=== PATIENT | female | born 1975 | race Caucasian/White ===

== ENCOUNTER → 2017-05-24 11:54 | Outpatient (CLI) | payer BC, SELFPAY ==
[2017-05-24 15:47] LABS: Absolute Lymphocyte Count 2.79 X10^3/ul (0.83-4.51); Absolute Neutrophil Count 2.7 X10^3/uL (2.0-7.7); Basophil# 0.02 X10^3/uL; Basophil% 0.3 % (0-1); Eosinophil# 0.15 X10^3/uL; Eosinophils% 2.4 % (0-5); Hematocrit 41.5 % (37-47); Hemoglobin 13.4 g/dl (12.0-15.0); Lymphocyte # 2.79 X10^3/ul (4.0); Lymphocyte % 45.2 % (19-41); Mean Corp Hgb Conc 32.3 g/gl (32-36); Mean Corpuscular Hgb 29.2 pg (27.0-32.0); Mean Corpuscular Volume 90.4 fL (81-99); Mean Platelet Vol. 10.4 fl (6.2-12.0); Monocyte# 0.51 X10^3/uL; Monocyte% 8.3 % (0-10); Neutrophil # 2.69 X10^3/uL (2.7-7.7); Neutrophil % 43.6 % (47-70); Platelet Count 276 K/mm3 (150-450); RBC Distribution Width CV 13.4 % (11.6-14.6); RBC Distribution Width SD 43.7 fl (35.1-43.9); Red Blood Count 4.59 M/mm3 (4.2-5.4); White Blood Count 6.2 K/mm3 (4.4-11.0)
[2017-05-24 15:48] LABS: POSITIVE COUNT NO; POSITIVE DIFFERENTIAL NO; POSITIVE MORPHOLOGY NO
[2017-05-24 15:51] LABS: Erythrocyte Sedimentation Rate 11 mm/hr (0-20)
[2017-05-24 16:11] LABS: ALB/GLOB Ratio 0.9 RATIO (0.9-2.4); AST(SGOT) 45 U/L (15-37); Alanine Aminotransfer ALT/SGPT 75 U/L (13-56); Albumin, Serum 3.8 g/dL (3.2-5.0); Alkaline Phosphatase 51 U/L (45-117); Anion Gap 8 (5-15); BUN 17 mg/dL (7-18); BUN/Creat Ratio 19.1 RATIO (10-20); CRP 7.81 mg/L (0.0-3.0); Calcium,Total 8.2 mg/dL (8.5-10.1); Chloride 107 mmol/L (98-107); Creatinine, Serum 0.89 mg/dL (0.55-1.02); EST Glomerular Filtration Rate 74 mL/min (>60); Est Glom Filt Rate - Afr Amer 89 mL/min (>60); Globulin 4.4 g/dL (2.2-4.2); Glucose 94 mg/dL (74-106); Potassium 3.5 mmol/L (3.5-5.1); Protein, Total 8.2 g/dL (6.4-8.2); Rheumatoid Factor < 10.0 IU/mL (<15); Sodium Level 141 mmol/L (136-145); Thyroid Stim Hormone (TSH) 2.15 uIU/mL (0.358-3.74)
[2017-05-24 16:12] LABS: Vitamin B12 1165 pg/mL (211-911); Vitamin D,25 Hydroxy 15.3 ng/mL (29.95-100.01)
[2017-05-26 11:16] LABS: ANTINUCLEAR ANTIBODIES DIRECT Negative (Negative)
[2017-05-27 08:44] LABS: CCP IgG Antibodies 7 units (0-19)
== END ==
PROVIDERS: Family Provider Family Medicine; PCP Family Medicine; Visit Provider Family Medicine
DX: M06.4 Inflammatory polyarthropathy (principal); D64.9 Anemia, unspecified; R53.83 Other fatigue
CPT/HCPCS: 36415; 80053; 82306; 82607; 84439; 84443; 85025; 85652; 86038; 86140; 86200; 86225; 86235; 86431

== ENCOUNTER → 2019-01-09 14:55 | Outpatient (CLI) | payer SELFPAY | PROVIDERS: Family Provider Family Medicine; PCP Family Medicine; Visit Provider Family Medicine | DX: R69 Illness, unspecified (principal) | CPT/HCPCS: 36415 ==

== ENCOUNTER 2019-06-15 15:27 | Inpatient (IN) | payer MEDICARE, OTHER, SELFPAY ==
[2019-06-15] VITALS (11 sets, daily range): BP systolic 115–151; BP diastolic 75–97; PULSE 84–96; RESP 15–20; TEMP 36.9–38.9; O2SAT 84–97; BMI 35.2; BMI 37.3
--- NOTE | 2019-06-15 15:50 | EKG12_ITS ---
Test Reason : SOB Blood Pressure : / mmHG Vent. Rate : 092 BPM Atrial Rate : 092 BPM P-R Int : 164 ms QRS Dur : 080 ms QT Int : 352 ms P-R-T Axes : 023 -07 043 degrees QTc Int : 435 ms Normal sinus rhythm Normal ECG Confirmed by ZACKARY TERRY, DANIELLE ([id number]), international editorial producer JALEESA ANTONIO ([id number]) on 06/18/2019 10:58:28 AM Referred By: KAREN Confirmed By:DANIELLE RAYMUNDO MD
--- NOTE | 2019-06-15 15:55 | NURSING ---
NO OLD EKGS
[2019-06-15 16:20] LABS: Absolute Lymphocyte Count 1.18 X10^3/uL (0.83-4.51); Absolute Neutrophil Count 1.3 X10^3/uL (2.0-7.7); Basophil# 0.01 X10^3/uL; Basophil% 0.4 % (0-1); Hematocrit 43.7 % (37-47); Hemoglobin 14.4 g/dL (12.0-15.0); Lymphocyte # 1.18 X10^3/ul (4.0); Lymphocyte % 41.8 % (19-41); Mean Corpuscular Hgb 29.9 pg (27.0-32.0); Mean Corpuscular Volume 90.7 fL (81-99); Mean Platelet Vol. 10.2 fl (6.2-12.0); Monocyte# 0.28 X10^3/uL; Monocyte% 9.9 % (0-10); NRBC Flagged by Analyzer 0 % (0-5); Neutrophil # 1.34 X10^3/uL (2.7-7.7); Neutrophil % 47.5 % (47-70); Platelet Count 165 K/mm3 (150-450); RBC Distribution Width CV 12.9 % (11.6-14.6); RBC Distribution Width SD 42.5 fl (35.1-43.9); Red Blood Count 4.82 M/mm3 (4.2-5.4); White Blood Count 2.8 K/mm3 (4.4-11.0)
[2019-06-15] MEDS: Morphine 4 MG/ML Syringe IV (16:29)
[2019-06-15] MEDS: Ondansetron 4 MG/2 ML Vial IV (16:29)
[2019-06-15 16:31] LABS: Internal QC Validated? YES +Cl - CLEAR BKGD; Pregnancy, Serum, hCG Quali. NEGATIVE Negative
[2019-06-15 16:40] LABS: Anion Gap 6 (5-15); BUN 17 mg/dL (7-18); BUN/Creat Ratio 14.7 RATIO (10-20); Calcium,Total 8.8 mg/dL (8.5-10.1); Chloride 105 mmol/L (98-107); Creatinine, Serum 1.16 mg/dL (0.55-1.02); EST Glomerular Filtration Rate 54 mL/min (>60); Est Glom Filt Rate - Afr Amer 65 mL/min (>60); Estimated Creatinine Clearance 59.56 ml/min; Glucose 89 mg/dL (74-106); Potassium 3.8 mmol/L (3.5-5.1); Sodium Level 137 mmol/L (136-145)
--- NOTE | 2019-06-15 16:45 | RAD_ITS ---
STUDY: X-RAY CHEST REASON FOR EXAM: Female, 44 years old. 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 COMPARISON: None. FINDINGS: The lungs are underexpanded. There are patchy opacities in the left lower lobe. There is no demonstrated pleural abnormality. There is mild cardiac enlargement. Normal mediastinum and nicola. Normal visualized pulmonary arteries. Normal visualized aortic arch and descending thoracic aorta. Normal visualized thoracic spine. Normal visualized ribs, clavicles, and shoulders. There is no demonstrated abnormality of the visualized soft tissue structures of the upper abdomen. RAD/Chest 1 View (Portable) IMPRESSION: Patchy opacities left lower lobe suspicious for pneumonia. Electronically Signed: Lizzeth Little MD at 17:12 EDT Tel , Service support ,
--- NOTE | 2019-06-15 18:00 | ED.VISSUMM ---
- ER Visit Summary Date of Service: 06/15/19 Chief Complaint: Cough and sore throat History of Present Illness: The patient is a [address] Reynaldo Enamorado. She works as a nurse at [employer]. She has been in contact with a great deal of COVID-19. She reports that 6 days ago she developed a sore throat. She is gradually developed a nonproductive cough. She states that she has severe shortness of breath with ambulation. Is mild at rest. She has had subjective fever and chills. Patient does report that she has chest pain at 6 out of 10 severity. Is a constant pain that is increased with coughing. She describes it as dull. She is had nausea with no vomiting. Physical Examination: Vitals: 98.8, 151/97, 96, 18, 83% on room air with ambulation which is hypoxic.. General: Well-nourished and well-developed. Head: Normocephalic atraumatic. Neck: Supple, no lymphadenopathy. No JVD. Nontender. Cardiovascular: Regular rate and rhythm. No murmurs. Respiratory: No respiratory distress. Crackles at the bases bilaterally. Abdominal: Soft, nontender, nondistended, normal bowel sounds. No guarding, rebound, or peritoneal signs. Back: Nontender. Extremities: Nontender, no edema. Skin: Normal color, no rash. Neurologic: Alert and oriented ?3. Cranial nerves II through XII are intact. Normal strength and sensation. Psych: Normal affect. Test Results: EKG is sinus at [address] changes. Troponin is negative. test is negative. Chem-7 shows a creatinine 1.16. CBC shows a white count of 2.8 with 42% lymphocytes. Chest x-ray shows in my opinion poor inspiration with atelectasis at the left base. The radiologist read this is an infiltrate at the left base. Emergency Department Course and Treatment: Patient was given dose of morphine and Zofran IV. Ambulatory pulse ox is 83% with a good waveform. She was given Zithromax p.o. and Rocephin IV. I clinically do not think that she has pneumonia. I do not think that her imaging is consistent with pneumonia. I feel that given her history and her labs by far the most likely thing is that she has COVID-19. Treatment Plan: Patient was discussed Dr. Christopher. She will be admitted to hospital for further evaluation and treatment. Disposition: Admitted in stable condition. Impression: 1. URI. 2. Hypoxia. 3. Suspect COVID-19 infection. This note was generated with [employer] dictation software. It may contain incorrect words, spelling, and punctuation that were not noted in review of the chart prior to signing ED Disposition - Plan for ED Patient: Referrals: Reynaldo Enamorado MD [Primary Care Provider] -
--- NOTE | 2019-06-15 18:04 | NURSING ---
MED SURG TONE HYPOXIA, COVID
--- NOTE | 2019-06-15 18:22 | HP.PCM_ITS ---
Problem List (1) Pneumonia Status: Acute Qualifiers: Pneumonia type: due to unspecified organism Laterality: bilateral Lung location: lower lobe of lung Qualified Code(s): J18.9 - Pneumonia, unspecified organism History of Present Illness Date of Admission: 06/15/19 Chief Complaint: shortness of breath The patient is a 44 year old F who has been ill since this past June 08. Patient started off having a sore throat and then progressed to being short of breath. Patient had a pulse oximeter at home and was noting that she would be 70% when she would wake in the morning. Patient was having dyspnea on exertion progressively just got worse. 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 Symptoms just continue to get worse and patient presented to the emergency room. In emergency room, patient dropped down to 84% on room air and placed on oxygen. Chest x-ray was a poor inspiratory effort but was questionable for pneumonia. Patient received Rocephin and azithromycin. Patient was checked for influenza a which is negative. Additionally she was checked for COVID-19, results of yet to be sent out. [] Past Medical History Allergies No Known Allergies Allergy (Verified 06/15/19 15:30) Home Medications: Ambulatory Orders Medication Instructions Recorded NK 06/15/19 Smoking Status: Never smoker Alcohol: Occasional - States that she drinks 5 to 6 days/week but has not drank in a week. Drugs: None - *Family History Maternal History Items: - - No underlying lung disease such as asthma nor COPD Review of Systems Constitutional: Reports: Anorexia, Chills, Malaise, Weakness. Denies: Fever - States that her temperature normally resides around 96 but she is been registering temperatures around 99 Eyes: Reports: Blurred vision, Double vision HEENT: Reports: Sore Throat. Denies: Head Aches, Sinus Congestion, Sinus Drainage Cardiovascular: Denies: Chest Pain, Palpitations Respiratory: Reports: Cough, Shortness of Breath, Shortness of breath upon exertion, Sputum production Gastrointestinal: Reports: Nausea. 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 Patient states that if she turns her neck a certain way that her left arm go numb. This is been a chronic issue for her. Hematologic/ Lymphatic: Denies: Easy Bruising, Easy Bleeding Comment: All review of systems were negative except as mentioned above in the history of present illness and the other review of systems. VTE Information - Inpt Only VTE Present on Admission: No VTE Pharm Prophylaxis ordered?: Yes Patient Problems: Active and Suspected Problems Pneumonia (Acute) - Physical Exam Vitals/I&O's: Vital Signs Temp Pulse Resp BP Pulse Ox 36.9 C 88 15 118/75 95 06/15/19 17:00 06/15/19 17:00 06/15/19 17:32 06/15/19 17:00 06/15/19 17:32 Oxygen Flow Rate (L/min) 3 Oxygen Delivery Method Nasal Cannula Weight: 102.058 kg Body Mass Index (BMI) 35.2 General: Alert, Cooperative, No apparent distress HEENT: Atraumatic, Normocephalic Oral: Moist Mucosa, No Gingival or Mucosal Lesions/ Ulcerations Neck: No Nodes, Trachea Midline Lungs: Normal air movement, - - Bibasilar crackles Cardiovascular: Regular rate, Regular Rhythm, Normal S1, Normal S2 Abdomen: Bowel Sounds Present, Soft, Non Tender, Non-Distended, No Hepato- splenomegaly, Obese Extremities: No edema, No Calf Tenderness Skin: No rashes, No breakdown Musculoskeletal: No Tenderness to Palpation of Joints or Extremities, No Muscle Wasting Neurological: Deep Tendon Reflexes 2+/4 and Symmetrical - In the lower extremities, - - No clonus Psych/Mental Status: Normal Affect, Appropriate Microbiology Past 72 Hours 06/15/19 16:08 Mucosa - Nose Influenza Types A,B Direct FA (KAMERON) - Final Laboratory Results 06/15/19 16:08: COVID-19 (CHARLY) Pending 06/15/19 16:10: WBC 2.8 L, RBC 4.82, Hgb 14.4, Hct 43.7, MCV 90.7, MCH 29.9, MCHC 33.0, RDW Std Deviation 42.5, RDW Coeff of Viktoriya 12.9, Plt Count 165, MPV 10.2, Immature Gran % (Auto) 0.400, Neut % (Auto) 47.5, Lymph % (Auto) 41.8 H, Weakley % (Auto) 9.9, Eos % (Auto) 0.0, Baso % (Auto) 0.4, Absolute Neuts (auto) 1.3 L, Absolute Lymphs (auto) 1.18, Nucleated RBC % 0 06/15/19 16:10: Sodium 137, Potassium 3.8, Chloride 105, Carbon Dioxide 26.0, Anion Gap 6, BUN 17, Creatinine 1.16 H, Estim Creat Clear Calc 59.56, Est GFR (MDRD) Af Amer 65, Est GFR (MDRD) Non-Af 54 L, BUN/Creatinine Ratio 14.7, Glucose 89, Calcium 8.8, Troponin I < 0.015 06/15/19 16:10: Serum , Qual NEGATIVE Chest x-ray reviewed and showed poor inspiratory effort. Questionable bilateral infiltrate. Current Medications Ceftriaxone Sodium (Rocephin) 1 gm in 50 mls @ 100 mls/hr IV X1 ONE Stop: 06/15/19 18:23 Assessment/Plan All Active Problems Pneumonia (Acute) 1. Suspected pneumonia: * Etiology would be bacterial, such as pneumococcal versus viral, such as COVID- 19. * Plan is to continue with ceftriaxone and azithromycin, pulmonary toilet, check urinary antigens for Streptococcus, Legionella, check sputum culture. COVID- 19 testing performed in the emergency room and results probably will not return for another 48 hours * Patient is high risk for COVID-19 and I highly suspect that she does have COVID-19 given the fact that she she works at [employer] where there has been a multitude of patients who have it and from it apparently. * Given the concern for COVID-19, will check a d-dimer. If d-dimer is greater than 1.5, then would initiate anticoagulation with full dose enoxaparin or heparin drip. Patient's kidney function would allow enoxaparin. And that with that then would order a CT angiogram of the chest to rule out pulmonary embolism. If no pulmonary embolism is identified, then would just continue with the prophylactic dosing of enoxaparin. * Additionally given the concern for COVID-19, would avoid aggressive hydration. May consider 1/2 L of fluids the patient does require a CT angiogram but overall trying to minimize fluids with the high risk of acute lung injury associated with COVID-19. 2. Acute hypoxic respiratory insufficiency: * Secondary to pneumonia. Cannot rule out other processes such as VTE nor acute lung injury, possibly COVID-19 induced. * Pulmonary toilet. * Check ambulatory pulse ox upon discharge if patient still is requiring oxygen 3. VTE prophylaxis: Moderate to high risk given potential for COVID. Patient will be on enoxaparin. See above for further details. 4. Advanced care planning: Discussed with the patient. Patient wishes to be full CODE STATUS. Inpatient E&M: [id number] Init Hosp L3
[2019-06-15] MEDS: Azithromycin 250 MG Tablet 500 MG PO (18:25)
[2019-06-15] MEDS: Ceftriaxone 1 GM/50 ML BAG IV (18:25)
[2019-06-15] MEDS: Acetaminophen 325 MG Tablet 650 MG PO (20:39)
[2019-06-15] MEDS: guaiFENesin 1,200 MG Tablet 1200 MG PO (20:39)
[2019-06-15 22:35] LABS: D-Dimer Quantitative (DVT/PE) 0.62 FEU/ug/m (0.27-0.49)
[2019-06-16] VITALS (7 sets, daily range): BP systolic 108–134; BP diastolic 66–74; PULSE 76–89; RESP 18–20; TEMP 36.9–39.2; O2SAT 93–95
--- NOTE | 2019-06-16 02:05 | CT_ITS ---
STUDY: CTA CHEST REASON FOR EXAM: Female, 44 years old. 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 PNEUMONIA SEEN ON CXR RADIATION DOSAGE (If Supplied By Facility): CTDIvol = ( 12.67 ) mGy, DLP = ( 432.10 ) mGycm TECHNIQUE: The examination was performed with the intravenous administration of IV 100mL Isovue-370. Post-processing of the angiographic images was performed, with multiplanar reformation and 3D reconstruction. Individualized dose optimization techniques were used for this CT. COMPARISON: None. FINDINGS: Normal enhancement of the main pulmonary artery and right and left pulmonary arteries. Normal enhancement of the bilateral peripheral pulmonary arteries. There is no demonstrated pulmonary embolism. Normal thoracic aorta and visualized great vessels. There is no demonstrated aortic dissection. Normal heart and pericardium. Normal mediastinum. There borderline enlarged bilateral hilar lymph nodes which could be reactive. Normal visualized trachea and bronchi. There is suboptimal inspiration. There are multifocal bilateral perihilar and lower lobe pulmonary infiltrates worse at the lung bases consistent with pneumonitis. There is a 6 mm noncalcified nodule in the RIGHT upper lung which could be a granuloma. Neoplastic nodule considered less likely but not excluded. Short-term follow-up suggested. There is NO pleural effusion or pneumothorax. Normal chest wall structures. Normal osseous structures. Images of the upper abdomen demonstrate hepatomegaly with fatty infiltration. There is cholelithiasis. CT/CTA Chest W/WO Contrast IMPRESSION: There is no demonstrated pulmonary embolism. Normal thoracic aorta and visualized great vessels. There is no demonstrated aortic dissection. Normal heart and pericardium. There borderline enlarged bilateral hilar lymph nodes which could be reactive. There are multifocal bilateral perihilar and lower lobe pulmonary infiltrates worse at the lung bases consistent with pneumonitis. There is a 6 mm noncalcified nodule in the RIGHT upper lung which could be a granuloma. Neoplastic nodule considered less likely but not excluded. Short-term follow-up suggested. There is NO pleural effusion or pneumothorax. Images of the upper abdomen demonstrate hepatomegaly with fatty infiltration. There is cholelithiasis. Electronically Signed: Thom Roberson MD at 3:34 EDT , Service support ,
--- NOTE | 2019-06-16 02:07 | PCM.PN.BLA ---
Progress Note Elevated d-dimer?Discontinue prophylactic dose of Lovenox. Give therapeutic dose of Lovenox x1. Get a CTPA. Depending upon results of CTPA order Lovenox as appropriate. STROKE Vital Signs/Narrative: Vital Signs Pulse Ox 06/15/19 23:30 92
[2019-06-16] MEDS: Enoxaparin 120 MG/0.8 ML Syringe 110 MG SC (02:53)
[2019-06-16] MEDS: Acetaminophen 325 MG Tablet 650 MG PO ×2 (02:53→15:31)
[2019-06-16 06:34] LABS: Absolute Lymphocyte Count 1.22 X10^3/uL (0.83-4.51); Absolute Neutrophil Count 1.8 X10^3/uL (2.0-7.7); Basophil# 0.01 X10^3/uL; Basophil% 0.3 % (0-1); Differential Indicated SCAN CRITERIA MET; Hematocrit 41.8 % (37-47); Hemoglobin 13.7 g/dL (12.0-15.0); Lymphocyte # 1.22 X10^3/ul (4.0); Lymphocyte % 36.3 % (19-41); Mean Corp Hgb Conc 32.8 g/dL (32-36); Mean Corpuscular Hgb 29.1 pg (27.0-32.0); Mean Corpuscular Volume 88.7 fL (81-99); Mean Platelet Vol. 10.3 fl (6.2-12.0); Monocyte# 0.37 X10^3/uL; NRBC Flagged by Analyzer 0 % (0-5); Neutrophil # 1.75 X10^3/uL (2.7-7.7); Neutrophil % 52.1 % (47-70); POSITIVE MORPHOLOGY YES; Platelet Count 169 K/mm3 (150-450); RBC Distribution Width CV 12.7 % (11.6-14.6); RBC Distribution Width SD 41.9 fl (35.1-43.9); Red Blood Count 4.71 M/mm3 (4.2-5.4); White Blood Count 3.4 K/mm3 (4.4-11.0)
[2019-06-16 06:53] LABS: ALB/GLOB Ratio 0.7 RATIO (0.9-2.4); AST(SGOT) 165 U/L (15-37); Alanine Aminotransfer ALT/SGPT 150 U/L (13-56); Albumin, Serum 3.2 g/dL (3.2-5.0); Alkaline Phosphatase 55 U/L (45-117); Anion Gap 9 (5-15); BUN 19 mg/dL (7-18); BUN/Creat Ratio 19.5 RATIO (10-20); Calcium,Total 8.2 mg/dL (8.5-10.1); Chloride 102 mmol/L (98-107); Creatinine, Serum 0.98 mg/dL (0.55-1.02); EST Glomerular Filtration Rate 66 mL/min (>60); Est Glom Filt Rate - Afr Amer 79 mL/min (>60); Globulin 4.4 g/dL (2.2-4.2); Glucose 101 mg/dL (74-106); Potassium 3.5 mmol/L (3.5-5.1); Protein, Total 7.6 g/dL (6.4-8.2); Sodium Level 133 mmol/L (136-145)
[2019-06-16 06:55] LABS: Differential Comment SCANNED
[2019-06-16 06:56] LABS: Atypical Lymphocyte 1+ %
[2019-06-16] MEDS: guaiFENesin 1,200 MG Tablet 1200 MG PO ×2 (09:31→22:12)
--- NOTE | 2019-06-16 11:16 | PN_ITS ---
Patient Problems: Active and Suspected Problems Pneumonia (Acute) Reason for Visit: pneumonia Subjective: Breathing slightly better, but still worse from baseline. Vitals/I&O's: Vital Signs Temp Pulse Resp BP Pulse Ox 36.9 C 83 18 121/74 H 95 06/16/19 09:30 06/16/19 09:30 06/16/19 09:30 06/16/19 09:30 06/16/19 09:30 Oxygen Flow Rate (L/min) 4 Oxygen Delivery Method Nasal Cannula Weight: 108 kg Body Mass Index (BMI) 37.3 Intake and Output for Last 24 Hours 06/14/19 06/15/19 06/16/19 23:59 23:59 23:59 Intake Total 50 / 50 600 / 600 Balance 50 / 50 600 / 600 General: Alert, No apparent distress HEENT: Atraumatic, Normocephalic Oral: Moist Mucosa, No Gingival or Mucosal Lesions/ Ulcerations Neck: No Nodes, Trachea Midline Lungs: Diminished, - - crackles in bases bilaterally. Cardiovascular: Regular rate, Regular Rhythm, Normal S1, Normal S2, No murmurs Abdomen: Bowel Sounds Present, Soft, Non Tender, Non-Distended, No Hepato- splenomegaly, Passing Flatus Extremities: No edema, No Calf Tenderness Skin: No rashes, No breakdown Psych/Mental Status: Normal Affect, Appropriate Microbiology Past 72 Hours 06/15/19 20:50 Urine, Clean Catch Streptococcus pneumoniae Antigen (M - Final 06/15/19 20:50 Urine, Clean Catch Legionella Antigen - Final 06/15/19 16:08 Mucosa - Nose Influenza Types A,B Direct FA (KAMERON) - Final Laboratory Results 06/15/19 16:08: COVID-19 (CHARLY) Pending 06/15/19 16:10: WBC 2.8 L, RBC 4.82, Hgb 14.4, Hct 43.7, MCV 90.7, MCH 29.9, MCHC 33.0, RDW Std Deviation 42.5, RDW Coeff of Viktoriya 12.9, Plt Count 165, MPV 10.2, Immature Gran % (Auto) 0.400, Neut % (Auto) 47.5, Lymph % (Auto) 41.8 H, Gray % (Auto) 9.9, Eos % (Auto) 0.0, Baso % (Auto) 0.4, Absolute Neuts (auto) 1.3 L, Absolute Lymphs (auto) 1.18, Nucleated RBC % 0 06/15/19 16:10: Sodium 137, Potassium 3.8, Chloride 105, Carbon Dioxide 26.0, Anion Gap 6, BUN 17, Creatinine 1.16 H, Estim Creat Clear Calc 59.56, Est GFR (MDRD) Af Amer 65, Est GFR (MDRD) Non-Af 54 L, BUN/Creatinine Ratio 14.7, Glucose 89, Calcium 8.8, Troponin I < 0.015 06/15/19 16:10: Serum , Qual NEGATIVE 06/15/19 21:56: D-Dimer Quant (PE/DVT) 0.62 H* 06/16/19 05:46: WBC 3.4 L, RBC 4.71, Hgb 13.7, Hct 41.8, MCV 88.7, MCH 29.1, MCHC 32.8, RDW Std Deviation 41.9, RDW Coeff of Viktoriya 12.7, Plt Count 169, MPV 10.3, Immature Gran % (Auto) 0.300, Neut % (Auto) 52.1, Lymph % (Auto) 36.3, Gray % (Auto) 11.0 H, Eos % (Auto) 0.0, Baso % (Auto) 0.3, Absolute Neuts (auto) 1.8 L, Absolute Lymphs (auto) 1.22, Nucleated RBC % 0, Differential Comment SCANNED, Atypical Lymphocytes 1+ 06/16/19 05:46: Sodium 133 L, Potassium 3.5, Chloride 102, Carbon Dioxide 22.0, Anion Gap 9, BUN 19 H, Creatinine 0.98, Estim Creat Clear Calc 70.50, Est GFR (MDRD) Af Amer 79, Est GFR (MDRD) Non-Af 66, BUN/Creatinine Ratio 19.5, Glucose 101, Calcium 8.2 L, Total Bilirubin 0.70, AST 165 H, ALT 150 H, Alkaline Phosphatase 55, Total Protein 7.6, Albumin 3.2, Globulin 4.4 H, Albumin/Globulin Ratio 0.7 L Current Medications Acetaminophen (Tylenol) 650 mg PO Q6H PRN PRN PRN Reason: Pain Score 1-10/Temp > 100.7 F Last Admin: 06/16/19 02:53 Dose: 650 mg Documented by: Dextrose (D50w Syringe) 0 gm IV X1 PRN; Protocol PRN Reason: Hypoglycemia Enoxaparin Sodium (Lovenox) 40 mg SC DAILY RICKEY Glucagon () 1 mg IM .X1 PRN PRN Reason: Hypoglycemia Guaifenesin (Mucinex) 1,200 mg PO BID [facility] Last Admin: 06/16/19 09:31 Dose: 1,200 mg Documented by: Ceftriaxone Sodium 2 gm/ (Sodium Chloride) 50 mls @ 100 mls/hr IV Q24@2200 RICKEY Azithromycin 500 mg/ Dextrose 255 mls @ 250 mls/hr IV Q24@2200 RICKEY Sodium Chloride () 250 mls @ 15 mls/hr IV .[id number] PRN PRN Reason: Saline Flush Sodium Chloride () 250 mls @ 15 mls/hr IV .[id number] PRN PRN Reason: Additional IVPB Infusion Ibuprofen (Motrin) 400 mg PO Q4H PRN PRN PRN Reason: Pain Score 1-10/Temp > 100.7 F Ondansetron HCl (Zofran) 4 mg IV Q8H PRN PRN PRN Reason: NAUSEA/VOMITING Sodium Chloride () 10 - 40 ml IV UD PRN PRN Reason: SALINE FLUSH STROKE Vital Signs/Narrative: Vital Signs Temp Pulse Resp BP Pulse Ox 06/16/19 09:30 36.9 C 83 18 121/74 H 95 Medical Necessity - Tobacco Use Smoking Status: Never smoker Assessment/Plan All Active Problems Pneumonia (Acute) 1. Suspected pneumonia: * Etiology would be bacterial, such as pneumococcal versus viral, such as COVID- 19. * Plan is to continue with ceftriaxone and azithromycin, pulmonary toilet, * Strep and legionella antigens negative. Influenza negative. * Patient is high risk for COVID-19 and I highly suspect that she does have COVID-19 given the fact that she she works at [employer] where there has been a multitude of patients who have it and from it apparently. * CTA reviewed showed bilateral infiltrates * If worsens and is COVID-19 positive, consider rechecking D-dimer and if greater than >1.5, start empiric anticoagulation (LMWH v UFH) 2. Acute hypoxic respiratory insufficiency: * Secondary to pneumonia. No PE * Pulmonary toilet. * Check ambulatory pulse ox upon discharge if patient still is requiring oxygen 3. VTE prophylaxis: Moderate to high risk given potential for COVID. Patient will be on enoxaparin. 4. Advanced care planning: Discussed with the patient. Patient wishes to be full CODE STATUS. Inpatient E&M: [id number] Subs Hosp L2
[2019-06-16] MEDS: 0.9% Saline Lock 10 ML Syringe IV (20:12)
[2019-06-16] MEDS: Ibuprofen 400 MG Tablet PO (22:12)
[2019-06-17] VITALS (7 sets, daily range): BP systolic 110–136; BP diastolic 71–82; PULSE 75–97; RESP 19–20; TEMP 37.1–39.2; O2SAT 92–94
--- NOTE | 2019-06-17 04:48 | PCM.PN.BLA ---
Progress Note Notified by page from nurse that COVID-19 test is positive. STROKE Vital Signs/Narrative: Vital Signs Temp Pulse Resp BP Pulse Ox 06/17/19 02:43 98.8 F 75 20 H 131/82 H 92
[2019-06-17] MEDS: Ibuprofen 400 MG Tablet PO ×2 (06:29→17:52)
[2019-06-17 07:07] LABS: Absolute Lymphocyte Count 1.16 X10^3/uL (0.83-4.51); Absolute Neutrophil Count 1.3 X10^3/uL (2.0-7.7); Basophil# 0.01 X10^3/uL; Basophil% 0.4 % (0-1); Hematocrit 42.2 % (37-47); Hemoglobin 14.3 g/dL (12.0-15.0); Lymphocyte # 1.16 X10^3/ul (4.0); Lymphocyte % 42.3 % (19-41); Mean Corp Hgb Conc 33.9 g/dL (32-36); Mean Corpuscular Hgb 30.4 pg (27.0-32.0); Mean Corpuscular Volume 89.8 fL (81-99); Mean Platelet Vol. 10.2 fl (6.2-12.0); Monocyte# 0.24 X10^3/uL; Monocyte% 8.8 % (0-10); NRBC Flagged by Analyzer 0 % (0-5); Neutrophil # 1.32 X10^3/uL (2.7-7.7); Neutrophil % 48.1 % (47-70); Platelet Count 139 K/mm3 (150-450); RBC Distribution Width CV 12.8 % (11.6-14.6); RBC Distribution Width SD 41.6 fl (35.1-43.9); White Blood Count 2.7 K/mm3 (4.4-11.0)
[2019-06-17 07:27] LABS: Anion Gap 6 (5-15); BUN 13 mg/dL (7-18); BUN/Creat Ratio 14.1 RATIO (10-20); Calcium,Total 8.2 mg/dL (8.5-10.1); Chloride 109 mmol/L (98-107); Creatinine, Serum 0.92 mg/dL (0.55-1.02); EST Glomerular Filtration Rate 70 mL/min (>60); Est Glom Filt Rate - Afr Amer 85 mL/min (>60); Estimated Creatinine Clearance 75.09 ml/min; Glucose 90 mg/dL (74-106); Potassium 3.8 mmol/L (3.5-5.1); Sodium Level 136 mmol/L (136-145)
[2019-06-17] MEDS: guaiFENesin 1,200 MG Tablet 1200 MG PO ×2 (08:28→22:39)
[2019-06-17] MEDS: Enoxaparin 40 MG/0.4 ML Syringe SC ×2 (08:29→22:46)
--- NOTE | 2019-06-17 12:04 | CASEMGMT ---
Social Work Note Pt is listed as self-pay. SW placed a call to [facility] and spoke with Marissa. Marissa states it is showing that pt has [facility] [place] and has been verified. Aida Vidal ELECTRIC FORK OPERATOR, BULL CHAIN OPERATOR
--- NOTE | 2019-06-17 12:51 | CASEMGMT ---
RN CM Assessment Note Presentation: COVID + Intro role of CM and purpose of RN CM assessment to patient via phone. Pt is awake, alert and able to participate in assessment. Demographics, PCP and Pharmacy verified. Pt states she is independent, works and does not anticipate needs on dc. -Discussed COVID concerns pt had upon returning home. Pt states she lives with her and a roommate. Both are @ home and currently asymptomatic. They are aware they need to quarantine, and pt would like clarification from physician as to how long. Pt is aware she too will be required to self isolate at home for a period of time. RN CM let her know thorough instructions would be reviewed by nursing and physician on dc. - Pt is generally independent and plans to return home. -Pt has family /friends who would be able to bring groceries, medications etc if she and her household is unable to. -Pt has area to self- isolate on dc. -No current DME needs, but CM will continue to follow and assess for DME,oxygen needs on dc. -Pt does have someone to pick her up on discharge. PCP: Dr. Reynaldo Enamorado Specialists: none Preferred [facility]acy[facility] Insurance: MMO. Card not on file and family is currently quarantined. CM called to precert, per their review, pt has [employer] PPO plus. Prescription Benefit: yes LNOK : Living Arrangements: Lives independently with . No care needs identified. Transportation: pt/ drive, but pt has other family/friends who can assist if she cannot. DME: none. If home oxygen is needed, per MMO site and [employer] PPO designation used, [facility] locally is: [employer] [employer] [facility]. HHC: none Patient DC goals: Home DC PLAN: Home, RN SYLWIA advised to contact cm for any concerns/needs that may arise. CM will follow to assess for oxygen needs on discharge. Shawna DUFF RN ACM
--- NOTE | 2019-06-17 15:19 | PN_ITS ---
Patient Problems: Active and Suspected Problems Pneumonia (Acute) Reason for Visit: COVID-19 pneumonia Objective: Patient has high-grade fever, T-max 102.6 Fahrenheit about 10 PM last night. Currently afebrile. Heart rate is controlled. Patient is still short of breath although it did not get worse since yesterday. Patient also has loose bowel movement about 3 times since morning. Vitals/I&O's: Vital Signs Temp Pulse Resp BP Pulse Ox 99.1 F 87 20 H 126/72 H 92 06/17/19 15:07 06/17/19 15:07 06/17/19 15:07 06/17/19 15:07 06/17/19 15:07 Oxygen Flow Rate (L/min) 2 Oxygen Delivery Method Nasal Cannula Weight: 238 lb 1.588 oz Body Mass Index (BMI) 37.3 Intake and Output for Last 24 Hours 06/15/19 06/16/19 06/17/19 23:59 23:59 23:59 Intake Total 50 / 50 1408.5 / 1408.5 812.25 / 812.25 Balance 50 / 50 1408.5 / 1408.5 812.25 / 812.25 General: Alert, Oriented x3, Cooperative HEENT: Atraumatic, PERRLA, EOMI, Normocephalic Neck: Supple, No JVD, Negative Carotid Bruits Lungs: Diminished, Rhonchi Cardiovascular: Regular rate, Regular Rhythm, Normal S1, Normal S2, No murmurs Abdomen: Bowel Sounds Present, Soft, Non Tender, Non-Distended Extremities: No edema, Capillary Refill Less than 3 Seconds Skin: No rashes, No breakdown Musculoskeletal: No Tenderness to Palpation of Joints or Extremities Neurological: Cranial nerves II-XII grossly intact, Deep Tendon Reflexes 2+/4 and Symmetrical, Neuro grossly intact Psych/Mental Status: Normal Affect, Appropriate Microbiology Past 72 Hours 06/15/19 20:50 Urine, Clean Catch Streptococcus pneumoniae Antigen (M - Final 06/15/19 20:50 Urine, Clean Catch Legionella Antigen - Final 06/15/19 16:08 Mucosa - Nose Influenza Types A,B Direct FA (KAMERON) - Final Laboratory Results 06/15/19 16:08: COVID-19 (CHARLY) Detected 06/17/19 06:50: WBC 2.7 L, RBC 4.70, Hgb 14.3, Hct 42.2, MCV 89.8, MCH 30.4, MCHC 33.9, RDW Std Deviation 41.6, RDW Coeff of Viktoriya 12.8, Plt Count 139 L, MPV 10.2, Immature Gran % (Auto) 0.400, Neut % (Auto) 48.1, Lymph % (Auto) 42.3 H, [place] % (Auto) 8.8, Eos % (Auto) 0.0, Baso % (Auto) 0.4, Absolute Neuts (auto) 1.3 L, Absolute Lymphs (auto) 1.16, Nucleated RBC % 0 06/17/19 06:50: Sodium 136, Potassium 3.8, Chloride 109 H, Carbon Dioxide 21.0, Anion Gap 6, BUN 13, Creatinine 0.92, Estim Creat Clear Calc 75.09, Est GFR (MDRD) Af Amer 85, Est GFR (MDRD) Non-Af 70, BUN/Creatinine Ratio 14.1, Glucose 90, Calcium 8.2 L Current Medications Acetaminophen (Tylenol) 650 mg PO Q6H PRN PRN PRN Reason: Pain Score 1-10/Temp > 100.7 F Last Admin: 06/16/19 15:31 Dose: 650 mg Documented by: Dextrose (D50w Syringe) 0 gm IV X1 PRN; Protocol PRN Reason: Hypoglycemia Enoxaparin Sodium (Lovenox) 40 mg SC BID [facility] Glucagon () 1 mg IM .X1 PRN PRN Reason: Hypoglycemia Guaifenesin (Mucinex) 1,200 mg PO BID [facility] Last Admin: 06/17/19 08:28 Dose: 1,200 mg Documented by: Ceftriaxone Sodium 2 gm/ (Sodium Chloride) 50 mls @ 100 mls/hr IV Q24@2200 RICKEY Last Infusion: 06/16/19 20:42 Dose: Infused Documented by: Sodium Chloride () 250 mls @ 15 mls/hr IV .[id number] PRN PRN Reason: Saline Flush Last Infusion: 06/17/19 02:43 Dose: 0 mls/hr Documented by: Sodium Chloride () 250 mls @ 15 mls/hr IV .[id number] PRN PRN Reason: Additional IVPB Infusion Ibuprofen (Motrin) 400 mg PO Q4H PRN PRN PRN Reason: Pain Score 1-10/Temp > 100.7 F Last Admin: 06/17/19 06:29 Dose: 400 mg Documented by: Ondansetron HCl (Zofran) 4 mg IV Q8H PRN PRN PRN Reason: NAUSEA/VOMITING Sodium Chloride () 10 - 40 ml IV UD PRN PRN Reason: SALINE FLUSH Last Admin: 06/16/19 20:12 Dose: 10 ml Documented by: STROKE Vital Signs/Narrative: Vital Signs Temp Pulse Resp BP Pulse Ox 06/17/19 15:07 99.1 F 87 20 H 126/72 H 92 Medical Necessity - Tobacco Use Smoking Status: Never smoker Assessment/Plan All Active Problems Pneumonia (Acute) 44-year-old female who is admitted after she fell ill since June 08 with sore throat which progressed to shortness of breath, hypoxia and fever. She is tested positive of COVID-19. 1. COVID-19 pneumonia with acute hypoxic respiratory insufficiency: The patient initially started on IV ceftriaxone and azithromycin. Azithromycin discontinued on 06/16. ID consulted and discussed with him. Urinary antigens are negative. Rapid influenza test negative. CT chest reviewed and shows bilateral perihilar and lower lobe pulmonary infiltrates worse at lung bases consistent with pneumonitis/pneumonia. D-dimer is 0.62. Patient has mild leukopenia 2.7 thousand, thrombocytopenia 139,000. 2. Acute hypoxic respiratory insufficiency: * Secondary to pneumonia. No PE * Bronchopulmonary hygiene. * On 2 L of oxygen. Titrate to keep pulse ox more than 90%. 3. VTE prophylaxis: Discussed with ID. Moderate to high risk. On Lovenox 40 mg twice daily. 4. Advanced care planning: Discussed with the patient. Patient wishes to be full CODE STATUS. Clinical Impression(s) from Imaging Studies Chest X-Ray 06/15/19 16:45 IMPRESSION: Patchy opacities left lower lobe suspicious for pneumonia. Electronically Signed: Lizzeth Little MD at 17:12 EDT Tel , Service support , Chest CTA 06/16/19 02:05 IMPRESSION: There is no demonstrated pulmonary embolism. Normal thoracic aorta and visualized great vessels. There is no demonstrated aortic dissection. Normal heart and pericardium. There borderline enlarged bilateral hilar lymph nodes which could be reactive. There are multifocal bilateral perihilar and lower lobe pulmonary infiltrates worse at the lung bases consistent with pneumonitis. There is a 6 mm noncalcified nodule in the RIGHT upper lung which could be a granuloma. Neoplastic nodule considered less likely but not excluded. Short-term follow-up suggested. There is NO pleural effusion or pneumothorax. Images of the upper abdomen demonstrate hepatomegaly with fatty infiltration. There is cholelithiasis. Inpatient E&M: 61898 Subs Hosp L2
--- NOTE | 2019-06-17 19:58 | CON.PCM_ITS ---
Problem List (1) COVID-19 Status: Acute Reason for Consult: covid Consulted by: Dr. Pozo History of Present Illness: The patient is a 44 year old F who presented with 6 days of fever, cough, aches, headache, nausea, not feeling well. 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 Lives with and roommate who have been healthy. Did not isolate during the past week at home. Came to ED, admitted on azithro/ceftriaxone. Feeling about the same, still dyspnea, cough, not feeling well. Full ROS performed and neg except as noted above. No chest pain. - Medical History Surgical History: reviewed Allergies/Adverse Reactions: Allergies No Known Allergies Allergy (Verified 06/15/19 15:30) Home Medications: Ambulatory Orders Medication Instructions Recorded NK 06/15/19 - Social History Tobacco Use: non-smoker Vital Signs Temp Pulse Resp BP Pulse Ox 100.7 F H 85 20 H 124/72 H 94 06/17/19 18:50 06/17/19 18:50 06/17/19 18:50 06/17/19 18:50 06/17/19 18:50 Oxygen Flow Rate (L/min) 5 Oxygen Delivery Method Nasal Cannula Weight: 108 kg Body Mass Index (BMI) 37.3 Microbiology Past 72 Hours 06/15/19 20:50 Streptococcus pneumoniae Antigen (M - Final Urine, Clean Catch 06/15/19 20:50 Legionella Antigen - Final Urine, Clean Catch 06/15/19 16:08 Influenza Types A,B Direct FA (KAMERON) - Final Mucosa - Nose Laboratory Tests Past 24 Hrs 06/15/19 06/17/19 06/17/19 16:08 06:50 06:50 WBC 2.7 L RBC 4.70 Hgb 14.3 Hct 42.2 MCV 89.8 MCH 30.4 MCHC 33.9 RDW Std Deviation 41.6 RDW Coeff of Viktoriya 12.8 Plt Count 139 L MPV 10.2 Immature Gran % (Auto) 0.400 Neut % (Auto) 48.1 Lymph % (Auto) 42.3 H [place] % (Auto) 8.8 Eos % (Auto) 0.0 Baso % (Auto) 0.4 Absolute Neuts (auto) 1.3 L Absolute Lymphs (auto) 1.16 Nucleated RBC % 0 Sodium 136 Potassium 3.8 Chloride 109 H Carbon Dioxide 21.0 Anion Gap 6 BUN 13 Creatinine 0.92 Estim Creat Clear Calc 75.09 Est GFR (MDRD) Af Amer 85 Est GFR (MDRD) Non-Af 70 BUN/Creatinine Ratio 14.1 Glucose 90 Calcium 8.2 L COVID-19 (CHARLY) Detected - Other Studies Radiology: [] reviewed Other Studies: [] Route of nutrition/ use of supplements: [] Nutritional Intake: [] IV Site: [] Gonzales Catheter: [] - Physical Exam General: Alert, Oriented x3, Cooperative, - - ill appearing HEENT: Atraumatic, PERRLA, EOMI Neck: Supple, No Nodes Lungs: Rhonchi - faint bilat Cardiovascular: Regular rate, Regular Rhythm Abdomen: Soft, Non Tender, Non-Distended Extremities: No edema Skin: No rashes IV Site: Peripheral, without redness Musculoskeletal: No Tenderness to Palpation of Joints or Extremities - Assessment/Plan Antibiotics: [] Assessment/Plan: [] Active and Suspected Problems Pneumonia (Acute) COVID (+) with hypoxia - some transaminitis. Will check trop, procal with AM labs along with d-dimer. Stop azithro; UAg neg. Cont ceftriaxone for now, low suspicion for bacterial pneumonia at this time Will follow, thank you, d/w Dr. Pozo.
[2019-06-17] MEDS: Acetaminophen 325 MG Tablet 650 MG PO (22:39)
[2019-06-17] MEDS: 0.9% Saline Lock 10 ML Syringe IV (22:40)
[2019-06-17] MEDS: Ondansetron 4 MG/2 ML Vial IV (22:40)
[2019-06-18] VITALS (9 sets, daily range): BP systolic 107–128; BP diastolic 67–74; PULSE 63–90; RESP 16–20; TEMP 36.8–39.1; O2SAT 92–93
[2019-06-18] MEDS: Ibuprofen 400 MG Tablet PO ×2 (03:23→08:34)
[2019-06-18] MEDS: Acetaminophen 325 MG Tablet 650 MG PO ×3 (05:06→22:31)
[2019-06-18 07:38] LABS: Absolute Neutrophil Count 2.2 X10^3/uL (2.0-7.7); Hematocrit 38.5 % (37-47); Hemoglobin 12.7 g/dL (12.0-15.0); Lymphocyte % 27.6 % (19-41); Mean Corpuscular Volume 87.9 fL (81-99); Mean Platelet Vol. 10.3 fl (6.2-12.0); Monocyte# 0.18 X10^3/uL; Monocyte% 5.5 % (0-10); NRBC Flagged by Analyzer 0 % (0-5); Neutrophil # 2.17 X10^3/uL (2.7-7.7); Neutrophil % 66.6 % (47-70); Platelet Count 186 K/mm3 (150-450); RBC Distribution Width CV 12.7 % (11.6-14.6); RBC Distribution Width SD 41.1 fl (35.1-43.9); Red Blood Count 4.38 M/mm3 (4.2-5.4); White Blood Count 3.3 K/mm3 (4.4-11.0)
[2019-06-18 08:09] LABS: BUN 14 mg/dL (7-18); Creatinine, Serum 0.93 mg/dL (0.55-1.02); Estimated Creatinine Clearance 74.29 ml/min; Glucose 105 mg/dL (74-106)
[2019-06-18 08:10] LABS: ALB/GLOB Ratio 0.6 RATIO (0.9-2.4); AST(SGOT) 125 U/L (15-37); Alanine Aminotransfer ALT/SGPT 101 U/L (13-56); Albumin, Serum 2.9 g/dL (3.2-5.0); Alkaline Phosphatase 57 U/L (45-117); Anion Gap 9 (5-15); BUN/Creat Ratio 15.1 RATIO (10-20); Calcium,Total 8.3 mg/dL (8.5-10.1); Chloride 105 mmol/L (98-107); EST Glomerular Filtration Rate 69 mL/min (>60); Est Glom Filt Rate - Afr Amer 84 mL/min (>60); Globulin 4.5 g/dL (2.2-4.2); Potassium 3.3 mmol/L (3.5-5.1); Procalcitonin 0.43 ng/mL (0.00-0.09); Protein, Total 7.4 g/dL (6.4-8.2); Sodium Level 138 mmol/L (136-145)
[2019-06-18 08:17] LABS: D-Dimer Quantitative (DVT/PE) 0.58 FEU/ug/m (0.27-0.49)
[2019-06-18] MEDS: Enoxaparin 40 MG/0.4 ML Syringe SC ×2 (11:13→22:30)
[2019-06-18] MEDS: guaiFENesin 1,200 MG Tablet 1200 MG PO ×2 (11:13→22:30)
[2019-06-18] MEDS: 0.9% Saline Lock 10 ML Syringe IV ×2 (12:26→22:31)
[2019-06-18] MEDS: Ondansetron 4 MG/2 ML Vial IV (12:26)
--- NOTE | 2019-06-18 17:05 | PN_ITS ---
Patient Problems: Active and Suspected Problems Pneumonia (Acute) COVID-19 (Acute) Reason for Visit: COVID-19 pneumonia. Objective: Patient is still having documented fever, T-max 100.7 Fahrenheit in the morning. Oxygen requirement remained stable 5 L/min. Mild short of breath. On exam General: Alert, Oriented x3, Cooperative HEENT: Atraumatic, PERRLA, EOMI, Normocephalic Neck: Supple, No JVD, Negative Carotid Bruits Lungs: Rhonchi, air entry diminished bilaterally. Cardiovascular: Regular rate, Regular Rhythm, Normal S1, Normal S2, No murmurs Abdomen: Bowel Sounds Present, Soft, Non Tender, Non-Distended Extremities: No edema, Capillary Refill Less than 3 Seconds Skin: No rashes, No breakdown Musculoskeletal: No Tenderness to Palpation of Joints or Extremities Neurological: Cranial nerves II-XII grossly intact, Deep Tendon Reflexes 2+/4 and Symmetrical, Neuro grossly intact Psych/Mental Status: Normal Affect, Appropriate Vitals/I&O's: Vital Signs Temp Pulse Resp BP Pulse Ox 98.6 F 81 18 128/74 H 93 06/18/19 16:25 06/18/19 16:25 06/18/19 16:25 06/18/19 16:25 06/18/19 16:25 Oxygen Flow Rate (L/min) 5 Oxygen Delivery Method Nasal Cannula Weight: 238 lb 1.588 oz Body Mass Index (BMI) 37.3 Intake and Output for Last 24 Hours 06/16/19 06/17/19 06/18/19 23:59 23:59 23:59 Intake Total 1408.5 / 1408.5 1342.25 / 1792.25 1212.5 / 1212.5 Balance 1408.5 / 1408.5 1342.25 / 1792.25 1212.5 / 1212.5 Microbiology Past 72 Hours 06/15/19 20:50 Urine, Clean Catch Streptococcus pneumoniae Antigen (M - Mckenna l 06/15/19 20:50 Urine, Clean Catch Legionella Antigen - Final 06/15/19 16:08 Mucosa - Nose Influenza Types A,B Direct FA (KAMERON) - Final Laboratory Results 06/18/19 06:50: WBC 3.3 L, RBC 4.38, Hgb 12.7, Hct 38.5, MCV 87.9, MCH 29.0, MCHC 33.0, RDW Std Deviation 41.1, RDW Coeff of Viktoriya 12.7, Plt Count 186, MPV 10.3, Immature Gran % (Auto) 0.300, Neut % (Auto) 66.6, Lymph % (Auto) 27.6, [place] % (Auto) 5.5, Eos % (Auto) 0.0, Baso % (Auto) 0.0, Absolute Neuts (auto) 2.2, Absolute Lymphs (auto) 0.90, Nucleated RBC % 0 06/18/19 06:50: D-Dimer Quant (PE/DVT) 0.58 H* 06/18/19 06:50: Sodium 138, Potassium 3.3 L, Chloride 105, Carbon Dioxide 24.0, Anion Gap 9, BUN 14, Creatinine 0.93, Estim Creat Clear Calc 74.29, Est GFR (MDRD) Af Amer 84, Est GFR (MDRD) Non-Af 69, BUN/Creatinine Ratio 15.1, Glucose 105, Calcium 8.3 L, Total Bilirubin 0.50, AST 125 H, ALT 101 H, Alkaline Phosphatase 57, Troponin I < 0.015, Total Protein 7.4, Albumin 2.9 L, Globulin 4.5 H, Albumin/Globulin Ratio 0.6 L 06/18/19 06:50: Procalcitonin 0.43 H Current Medications Acetaminophen (Tylenol) 650 mg PO Q6H PRN PRN PRN Reason: Pain Score 1-10/Temp > 100.7 F Last Admin: 06/18/19 16:27 Dose: 650 mg Documented by: Dextrose (D50w Syringe) 0 gm IV X1 PRN; Protocol PRN Reason: Hypoglycemia Enoxaparin Sodium (Lovenox) 40 mg SC BID [facility] Last Admin: 06/18/19 11:13 Dose: 40 mg Documented by: Glucagon () 1 mg IM .X1 PRN PRN Reason: Hypoglycemia Guaifenesin (Mucinex) 1,200 mg PO BID [facility] Last Admin: 06/18/19 11:13 Dose: 1,200 mg Documented by: Ceftriaxone Sodium 2 gm/ (Sodium Chloride) 50 mls @ 100 mls/hr IV Q24@2200 [facility] Last Infusion: 06/17/19 23:30 Dose: Infused Documented by: Sodium Chloride () 250 mls @ 15 mls/hr IV .[id number] PRN PRN Reason: Saline Flush Last Infusion: 06/18/19 03:40 Dose: 0 mls/hr Documented by: Sodium Chloride () 250 mls @ 15 mls/hr IV .[id number] PRN PRN Reason: Additional IVPB Infusion Ibuprofen (Motrin) 400 mg PO Q4H PRN PRN PRN Reason: Pain Score 1-10/Temp > 100.7 F Last Admin: 06/18/19 08:34 Dose: 400 mg Documented by: Ondansetron HCl (Zofran) 4 mg IV Q8H PRN PRN PRN Reason: NAUSEA/VOMITING Last Admin: 06/18/19 12:26 Dose: 4 mg Documented by: Potassium Chloride (K-Dur) 40 meq PO DAILYCM RICKEY Sodium Chloride () 10 - 40 ml IV UD PRN PRN Reason: SALINE FLUSH Last Admin: 06/18/19 12:26 Dose: 10 ml Documented by: STROKE Vital Signs/Narrative: Vital Signs Temp Pulse Resp BP Pulse Ox 06/18/19 16:25 98.6 F 81 18 128/74 H 93 Medical Necessity - Tobacco Use Smoking Status: Never smoker Assessment/Plan All Active Problems Pneumonia (Acute) COVID-19 (Acute) 44-year-old female who is admitted after she fell ill since June 08 with sore throat which progressed to shortness of breath, hypoxia and fever. She is tested positive of COVID-19. 1. COVID-19 pneumonia with acute hypoxic respiratory insufficiency: The patient initially started on IV ceftriaxone and azithromycin. Azithromycin discontinued on 06/16. ID consulted and discussed with him. Urinary antigens are negative. Rapid influenza test negative. CT chest reviewed and shows bilateral perihilar and lower lobe pulmonary infiltrates worse at lung bases consistent with pneumonitis/pneumonia. D-dimer is 0.62. Patient has mild leukopenia 2.7 thousand, thrombocytopenia 139,000. Liver test, slight improvement in transaminases. On 06/17: D-dimer is elevated 0.58. Leukopenic. Discussed with ID. 2. Acute hypoxic respiratory insufficiency: * Secondary to pneumonia. No PE * Bronchopulmonary hygiene. 06/17: Oxygen requirement went up 5 L/min. 3. VTE prophylaxis: Discussed with ID. Moderate to high risk. On Lovenox 40 mg twice daily. 4. Advanced care planning: Discussed with the patient. Patient wishes to be full CODE STATUS. Clinical Impression(s) from Imaging Studies Chest X-Ray 06/15/19 16:45 IMPRESSION: Patchy opacities left lower lobe suspicious for pneumonia. Electronically Signed: Lizzeth Little MD at 17:12 EDT Tel , Service support , Chest CTA 06/16/19 02:05 IMPRESSION: There is no demonstrated pulmonary embolism. Normal thoracic aorta and visualized great vessels. There is no demonstrated aortic dissection. Normal heart and pericardium. There borderline enlarged bilateral hilar lymph nodes which could be reactive. There are multifocal bilateral perihilar and lower lobe pulmonary infiltrates worse at the lung bases consistent with pneumonitis. There is a 6 mm noncalcified nodule in the RIGHT upper lung which could be a granuloma. Neoplastic nodule considered less likely but not excluded. Short-term follow-up suggested. There is NO pleural effusion or pneumothorax. Images of the upper abdomen demonstrate hepatomegaly with fatty infiltration. There is cholelithiasis. Inpatient E&M: 54032 Subs Hosp L2
[2019-06-19] VITALS (12 sets, daily range): BP systolic 113–125; BP diastolic 73–78; PULSE 70–87; RESP 16–18; TEMP 36.8–38.1; O2SAT 88–98
[2019-06-19] MEDS: Albuterol Sulfate 8 gm Inhaler 2 PUFF INHALATION ×2 (00:32→06:21)
[2019-06-19] MEDS: Ibuprofen 400 MG Tablet PO ×3 (00:32→21:13)
[2019-06-19] MEDS: INHALER, ASSIST DEVICES 1 EACH SPACER INHALATION ×2 (00:33→06:21)
[2019-06-19 06:08] LABS: Absolute Lymphocyte Count 1.09 X10^3/uL (0.83-4.51); Absolute Neutrophil Count 2.7 X10^3/uL (2.0-7.7); Basophil# 0.01 X10^3/uL; Basophil% 0.3 % (0-1); Hematocrit 42.6 % (37-47); Hemoglobin 13.4 g/dL (12.0-15.0); Lymphocyte # 1.09 X10^3/ul (4.0); Lymphocyte % 27.3 % (19-41); Mean Corp Hgb Conc 31.5 g/dL (32-36); Mean Corpuscular Hgb 29.5 pg (27.0-32.0); Mean Corpuscular Volume 93.6 fL (81-99); Mean Platelet Vol. 10.4 fl (6.2-12.0); NRBC Flagged by Analyzer 0 % (0-5); Neutrophil # 2.69 X10^3/uL (2.7-7.7); Neutrophil % 67.1 % (47-70); POSITIVE MORPHOLOGY YES; Platelet Count 180 K/mm3 (150-450); RBC Distribution Width CV 12.9 % (11.6-14.6); RBC Distribution Width SD 44.1 fl (35.1-43.9); Red Blood Count 4.55 M/mm3 (4.2-5.4)
[2019-06-19 06:10] LABS: Differential Indicated SCAN CRITERIA MET
[2019-06-19 06:30] LABS: ALB/GLOB Ratio 0.6 RATIO (0.9-2.4); AST(SGOT) 123 U/L (15-37); Alanine Aminotransfer ALT/SGPT 86 U/L (13-56); Albumin, Serum 2.8 g/dL (3.2-5.0); Alkaline Phosphatase 54 U/L (45-117); Anion Gap 10 (5-15); BUN 15 mg/dL (7-18); BUN/Creat Ratio 17.8 RATIO (10-20); Calcium,Total 8.2 mg/dL (8.5-10.1); Chloride 108 mmol/L (98-107); Creatinine, Serum 0.84 mg/dL (0.55-1.02); EST Glomerular Filtration Rate 78 mL/min (>60); Est Glom Filt Rate - Afr Amer 94 mL/min (>60); Estimated Creatinine Clearance 82.25 ml/min; Globulin 4.8 g/dL (2.2-4.2); Glucose 91 mg/dL (74-106); Potassium 4.2 mmol/L (3.5-5.1); Protein, Total 7.6 g/dL (6.4-8.2); Sodium Level 138 mmol/L (136-145)
[2019-06-19 07:21] LABS: Differential Comment SCANNED
[2019-06-19] MEDS: Acetaminophen 325 MG Tablet 650 MG PO ×2 (09:20→15:46)
[2019-06-19] MEDS: Enoxaparin 40 MG/0.4 ML Syringe SC ×2 (09:21→21:11)
[2019-06-19] MEDS: guaiFENesin 1,200 MG Tablet 1200 MG PO ×2 (09:24→21:11)
--- NOTE | 2019-06-19 10:06 | PCM.PN.HOSP ---
Patient Problems: Active and Suspected Problems Pneumonia (Acute) COVID-19 (Acute) Vitals/I&O's: Vital Signs Temp Pulse Resp BP Pulse Ox 98.2 F 78 16 116/74 88 06/19/19 08:45 06/19/19 08:45 06/19/19 08:45 06/19/19 08:45 06/19/19 08:48 Oxygen Flow Rate (L/min) 6 Oxygen Delivery Method Nasal Cannula Weight: 238 lb 1.588 oz Body Mass Index (BMI) 37.3 Intake and Output for Last 24 Hours 06/17/19 06/18/19 06/19/19 23:59 23:59 23:59 Intake Total 1342.25 / 1792.25 1712.5 / 1712.5 Balance 1342.25 / 1792.25 1712.5 / 1712.5 Laboratory Results 06/19/19 05:40: WBC 4.0 L, RBC 4.55, Hgb 13.4, Hct 42.6, MCV 93.6 D, MCH 29.5, MCHC 31.5 L, RDW Std Deviation 44.1 H, RDW Coeff of Viktoriya 12.9, Plt Count 180, MPV 10.4, Immature Gran % (Auto) 0.300, Neut % (Auto) 67.1, Lymph % (Auto) 27.3, [place] % (Auto) 5.0, Eos % (Auto) 0.0, Baso % (Auto) 0.3, Absolute Neuts (auto) 2.7, Absolute Lymphs (auto) 1.09, Nucleated RBC % 0, Differential Comment SCANNED 06/19/19 05:40: Sodium 138, Potassium 4.2, Chloride 108 H, Carbon Dioxide 20.0 L, Anion Gap 10, BUN 15, Creatinine 0.84, Estim Creat Clear Calc 82.25, Est GFR (MDRD) Af Amer 94, Est GFR (MDRD) Non-Af 78, BUN/Creatinine Ratio 17.8, Glucose 91, Calcium 8.2 L, Total Bilirubin 0.50, AST 123 H, ALT 86 H, Alkaline Phosphatase 54, Total Protein 7.6, Albumin 2.8 L, Globulin 4.8 H, Albumin/Globulin Ratio 0.6 L 06/19/19 05:40: Ferritin Pending, Lactate Dehydrogenase Pending, Total Creatine Kinase Pending, Troponin I Pending, C-React Prot Ext Range Pending Current Medications Acetaminophen (Tylenol) 650 mg PO Q6H PRN PRN PRN Reason: Pain Score 1-10/Temp > 100.7 F Last Admin: 06/19/19 09:20 Dose: 650 mg Documented by: Albuterol Sulfate (Ventolin Hfa (Sp)) 2 puff INHALATION Q6H PRN PRN PRN Reason: sob/wheezing Last Admin: 06/19/19 06:21 Dose: 2 puff Documented by: Dextrose (D50w Syringe) 0 gm IV X1 PRN; Protocol PRN Reason: Hypoglycemia Enoxaparin Sodium (Lovenox) 40 mg SC BID [facility] Last Admin: 06/19/19 09:21 Dose: 40 mg Documented by: Glucagon () 1 mg IM .X1 PRN PRN Reason: Hypoglycemia Guaifenesin (Mucinex) 1,200 mg PO BID [facility] Last Admin: 06/19/19 09:24 Dose: 1,200 mg Documented by: Ceftriaxone Sodium 2 gm/ (Sodium Chloride) 50 mls @ 100 mls/hr IV Q24@2200 [facility] Last Infusion: 06/18/19 23:00 Dose: Infused Documented by: Sodium Chloride () 250 mls @ 15 mls/hr IV .[id number] PRN PRN Reason: Saline Flush Last Infusion: 06/19/19 00:40 Dose: 0 mls/hr Documented by: Sodium Chloride () 250 mls @ 15 mls/hr IV .[id number] PRN PRN Reason: Additional IVPB Infusion Ibuprofen (Motrin) 400 mg PO Q4H PRN PRN PRN Reason: Pain Score 1-10/Temp > 100.7 F Last Admin: 06/19/19 06:21 Dose: 400 mg Documented by: Miscellaneous Information (Pocket Chamber) 1 each INHALATION Q6H PRN PRN PRN Reason: WITH ALBUTEROL Last Admin: 06/19/19 06:21 Dose: 1 each Documented by: Ondansetron HCl (Zofran) 4 mg IV Q8H PRN PRN PRN Reason: NAUSEA/VOMITING Last Admin: 06/18/19 12:26 Dose: 4 mg Documented by: Pot[facility] Last Admin: 06/19/19 09:21 Dose: 40 meq Documented by: Sodium Chloride () 10 - 40 ml IV UD PRN PRN Reason: SALINE FLUSH Last Admin: 06/18/19 22:31 Dose: 10 ml Documented by: STROKE Vital Signs/Narrative: Vital Signs Temp Pulse Resp BP Pulse Ox 06/19/19 08:48 88 06/19/19 08:45 98.2 F 78 16 116/74 91 Medical Necessity - Tobacco Use Smoking Status: Never smoker Assessment/Plan All Active Problems Pneumonia (Acute) COVID-19 (Acute)
--- NOTE | 2019-06-19 10:08 | PCM.PN.HOSP ---
Patient Problems: Active and Suspected Problems Pneumonia (Acute) COVID-19 (Acute) Reason for Visit: COVID bilateral pneumonia with acute hypoxic respiratory failure Objective: Patient continues to spike fever, T-max 102.4 Fahrenheit last night. Blood pressure maintained. Oxygen requirement went up to 6 L. Patient is not tachypneic but has shallow breathing from the beginning. Initially, she voiced not to be intubated but states if she gets unresponsive unconscious she came intubated, same opinion from her to Vitals/I&O's: Vital Signs Temp Pulse Resp BP Pulse Ox 98.2 F 78 16 116/74 88 06/19/19 08:45 06/19/19 08:45 06/19/19 08:45 06/19/19 08:45 06/19/19 08:48 Oxygen Flow Rate (L/min) 6 Oxygen Delivery Method Nasal Cannula Weight: 238 lb 1.588 oz Body Mass Index (BMI) 37.3 Intake and Output for Last 24 Hours 06/17/19 06/18/19 06/19/19 23:59 23:59 23:59 Intake Total 1342.25 / 1792.25 1712.5 / 1712.5 Balance 1342.25 / 1792.25 1712.5 / 1712.5 General: Alert, Oriented x3, Cooperative HEENT: Atraumatic, PERRLA, EOMI, Normocephalic Neck: Supple, No JVD, Negative Carotid Bruits Lungs: No wheeze, No rales, Diminished, Rhonchi Cardiovascular: Regular rate, Regular Rhythm, Normal S1, Normal S2, No murmurs Abdomen: Bowel Sounds Present, Soft, Non Tender, Non-Distended Extremities: No edema, Capillary Refill Less than 3 Seconds Skin: No rashes, No breakdown Musculoskeletal: No Tenderness to Palpation of Joints or Extremities, Arthritic Changes Neurological: Cranial nerves II-XII grossly intact, Deep Tendon Reflexes 2+/4 and Symmetrical, Neuro grossly intact Psych/Mental Status: Normal Affect, Appropriate Laboratory Results 06/19/19 05:40: WBC 4.0 L, RBC 4.55, Hgb 13.4, Hct 42.6, MCV 93.6 D, MCH 29.5, MCHC 31.5 L, RDW Std Deviation 44.1 H, RDW Coeff of Viktoriya 12.9, Plt Count 180, MPV 10.4, Immature Gran % (Auto) 0.300, Neut % (Auto) 67.1, Lymph % (Auto) 27.3, [place] % (Auto) 5.0, Eos % (Auto) 0.0, Baso % (Auto) 0.3, Absolute Neuts (auto) 2.7, Absolute Lymphs (auto) 1.09, Nucleated RBC % 0, Differential Comment SCANNED 06/19/19 05:40: Sodium 138, Potassium 4.2, Chloride 108 H, Carbon Dioxide 20.0 L, Anion Gap 10, BUN 15, Creatinine 0.84, Estim Creat Clear Calc 82.25, Est GFR (MDRD) Af Amer 94, Est GFR (MDRD) Non-Af 78, BUN/Creatinine Ratio 17.8, Glucose 91, Calcium 8.2 L, Total Bilirubin 0.50, AST 123 H, ALT 86 H, Alkaline Phosphatase 54, Total Protein 7.6, Albumin 2.8 L, Globulin 4.8 H, Albumin/Globulin Ratio 0.6 L 06/19/19 05:40: Ferritin Pending, Lactate Dehydrogenase Pending, Total Creatine Kinase Pending, Troponin I Pending, C-React Prot Ext Range Pending Current Medications Acetaminophen (Tylenol) 650 mg PO Q6H PRN PRN PRN Reason: Pain Score 1-10/Temp > 100.7 F Last Admin: 06/19/19 09:20 Dose: 650 mg Documented by: Albuterol Sulfate (Ventolin Hfa (Sp)) 2 puff INHALATION Q6H PRN PRN PRN Reason: sob/wheezing Last Admin: 06/19/19 06:21 Dose: 2 puff Documented by: Dextrose (D50w Syringe) 0 gm IV X1 PRN; Protocol PRN Reason: Hypoglycemia Enoxaparin Sodium (Lovenox) 40 mg SC BID [facility] Last Admin: 06/19/19 09:21 Dose: 40 mg Documented by: Glucagon () 1 mg IM .X1 PRN PRN Reason: Hypoglycemia Guaifenesin (Mucinex) 1,200 mg PO BID [facility] Last Admin: 06/19/19 09:24 Dose: 1,200 mg Documented by: Sodium Chloride () 250 mls @ 15 mls/hr IV .[id number] PRN PRN Reason: Saline Flush Last Infusion: 06/19/19 00:40 Dose: 0 mls/hr Documented by: Sodium Chloride () 250 mls @ 15 mls/hr IV .[id number] PRN PRN Reason: Additional IVPB Infusion Piperacillin Sod/Tazobactam (Sod 3.375 gm/ Sodium Chloride) 50 mls @ 12.5 mls/hr IV Q8 RICKEY Ibuprofen (Motrin) 400 mg PO Q4H PRN PRN PRN Reason: Pain Score 1-10/Temp > 100.7 F Last Admin: 06/19/19 06:21 Dose: 400 mg Documented by: Miscellaneous Information (Pocket Chamber) 1 each INHALATION Q6H PRN PRN PRN Reason: WITH ALBUTEROL Last Admin: 06/19/19 06:21 Dose: 1 each Documented by: Ondansetron HCl (Zofran) 4 mg IV Q8H PRN PRN PRN Reason: NAUSEA/VOMITING Last Admin: 06/18/19 12:26 Dose: 4 mg Documented by: Potassium Chloride (K-Dur) 40 meq PO DAILYCM RICKEY Last Admin: 06/19/19 09:21 Dose: 40 meq Documented by: Sodium Chloride () 10 - 40 ml IV UD PRN PRN Reason: SALINE FLUSH Last Admin: 06/18/19 22:31 Dose: 10 ml Documented by: STROKE Vital Signs/Narrative: Vital Signs Temp Pulse Resp BP Pulse Ox 06/19/19 08:48 88 06/19/19 08:45 98.2 F 78 16 116/74 91 Medical Necessity - Tobacco Use Smoking Status: Never smoker Assessment/Plan All Active Problems Pneumonia (Acute) COVID-19 (Acute) 44-year-old female who is admitted after she fell ill since June 08 with sore throat which progressed to shortness of breath, hypoxia and fever. She is tested positive of COVID-19. 1. COVID-19 pneumonia with acute hypoxic respiratory insufficiency: The patient initially started on IV ceftriaxone and azithromycin. Azithromycin discontinued on 06/16. ID consulted and discussed with him. Urinary antigens are negative. Rapid influenza test negative. CT chest reviewed and shows bilateral perihilar and lower lobe pulmonary infiltrates worse at lung bases consistent with pneumonitis/pneumonia. D-dimer is 0.62. Patient has mild leukopenia 2.7 thousand, thrombocytopenia 139,000. Liver test, slight improvement in transaminases. On 06/17: D-dimer is elevated 0.58. Leukopenic. Discussed with ID. 06/18, patient is more hypoxic on 6 L of oxygen now. Discussed with ID and corn cutter. start on the AIRVO. Initially, she and her stated she did not want to get intubated but when she gets unresponsive or unconscious wants intubated. I talked to both patient and her , Mr. Gary Oh [phone]. Antibiotic broadened to IV Zosyn. Inflammatory markers CRP, ferritin, LDH, troponin and CPK ordered. 2. Acute hypoxic respiratory insufficiency: Secondary to pneumonia. No PE Bronchopulmonary hygiene. 06/18: As mentioned above 3. VTE prophylaxis: Discussed with ID. Moderate to high risk. On Lovenox 40 mg sq twice daily. 4. Advanced care planning: Discussed with the patient. Patient wishes to be full CODE STATUS. Total time of the visit including total time spent in counseling or coordination of care, (more than 50% of the total time, spent in obtaining medical information from nurses and other ancillary care providers), discussion with consultants, review of labs and imaging is 30 minutes Living will/advanced directive/end of life care: Patient does not have living will or advanced directive. After discussion of procedures involved with full code, DNR CC arrest and DNR CC, initially she did not want to get intubated but if she gets unresponsive/unconscious wants to be intubated. Practically, she will be full code. Total time spent in [id number] encounter in discussion of advanced directive 16 minutes. Clinical Impression(s) from Imaging Studies Chest X-Ray 06/15/19 16:45 IMPRESSION: Patchy opacities left lower lobe suspicious for pneumonia. Electronically Signed: Lizzeth Little MD at 17:12 EDT Tel , Service support , Chest CTA 06/16/19 02:05 IMPRESSION: There is no demonstrated pulmonary embolism. Normal thoracic aorta and visualized great vessels. There is no demonstrated aortic dissection. Normal heart and pericardium. There borderline enlarged bilateral hilar lymph nodes which could be reactive. There are multifocal bilateral perihilar and lower lobe pulmonary infiltrates worse at the lung bases consistent with pneumonitis. There is a 6 mm noncalcified nodule in the RIGHT upper lung which could be a granuloma. Neoplastic nodule considered less likely but not excluded. Short-term follow-up suggested. There is NO pleural effusion or pneumothorax. Images of the upper abdomen demonstrate hepatomegaly with fatty infiltration. There is cholelithiasis. Inpatient E&M: 12881 Subs Hosp L3
--- NOTE | 2019-06-19 10:30 | RAD_ITS ---
STUDY: X-RAY CHEST REASON FOR EXAM: Female, 44 years old. POSITIVE COVID19, TACHYPNEA TECHNIQUE: Single AP portable view of the chest. COMPARISON: Comparison is made with prior study dated June 15, 2019. FINDINGS: Denial was evidence of focal infiltrates in the right upper and right lower lobes as well as in the left upper lobe and lingular segment of the left upper lobe. There is no demonstrated pleural abnormality. There is borderline cardiomegaly. Normal mediastinum and nicola. Normal visualized pulmonary arteries. Normal visualized aortic arch and descending thoracic aorta. Normal visualized thoracic spine. Normal visualized ribs, clavicles, and shoulders. There is no demonstrated abnormality of the visualized soft tissue structures of the upper abdomen. RAD/Chest 1 View (Portable) IMPRESSION: Patchy bilateral infiltrates worse in the right hemithorax. Electronically Signed: Ilia Merino, at 12:37 EDT , Service support ,
[2019-06-19 10:53] LABS: CPK Total, Creatine Kinase 204 U/L (26-192); Ferritin 882 ng/mL (8-252); LDH 447 U/L (84-246)
--- NOTE | 2019-06-19 10:53 | NURSING ---
Patient spo2 found to be 88% on 5L o2 and Dr. Pozo notified. Initially pt ordered to transfer to ICU, however, pt then refused intubation. Dr. Pozo spoke with Dr. Strong and then to patient's . Patient's states if she becomes unable to make decisions on her own he will request intubation. Dr. Pozo requested patient speak with to be on the same page. Patient notified this RN that she just didn't feel like she needed to be intubated at this point and states she understands if she gets to the point where she becomes unresponsive she would want it then. Dr. Pozo updated with same. Continuous spo2 applied, airvo ordered and air scrubber placed in room per policy for high flow oxygen. CXR and labs completed as ordered and zosyn to be initiated. Patient notified of intent to try and keep patient on MS, however, aware that if situation gets worse that she would be transferred at that point. Pt. verbalized understanding and voiced concern that she may be coming across as attempting to be difficult. Notified patient that is not the case and that we will do the best we can to take care of her. Patient did tell this RN that her teenage son from a car crash in 2017 and that her mother and family has had a very difficult time since then. Pt currently 92-93% on 6L oxygen. Has PEP and IS she has been utilizing and also has been educated that prone positioning may help- pt has attempting this as well. She states that some of her decrease in spo2 is probably due to apnea. Respiratory therapy states that the airvo needed is in another room and will need to be cleaned. Notified wait time is currently about 50 minutes.
[2019-06-19] MEDS: 0.9% Saline Lock 10 ML Syringe IV ×2 (11:58→21:11)
--- NOTE | 2019-06-19 12:01 | NURSING ---
airvo placed on pt at this time.
--- NOTE | 2019-06-19 12:05 | CPS ---
Airvo started on 60%, Sat=97%
--- NOTE | 2019-06-19 17:10 | PCM.PN.ID ---
Patient Problems: Active and Suspected Problems Pneumonia (Acute) COVID-19 (Acute) Subjective: Breathing better overall currently, but did require increase in O2. Fever overnight, none so far today. No aches. Some mild dry cough. - Physical Exam Vitals/I&O's: Vital Signs Temp Pulse Resp BP Pulse Ox 98.3 F 72 17 125/73 H 97 06/19/19 15:40 06/19/19 15:40 06/19/19 15:40 06/19/19 15:40 06/19/19 15:40 Oxygen Flow Rate (L/min) 6 Oxygen Delivery Method Nasal Cannula Weight: 108 kg Body Mass Index (BMI) 37.3 Intake and Output for Last 24 Hours 06/17/19 06/18/19 06/19/19 23:59 23:59 23:59 Intake Total 1342.25 / 1792.25 1712.5 / 1712.5 525 / 525 Balance 1342.25 / 1792.25 1712.5 / 1712.5 525 / 525 General: Alert, Cooperative, No apparent distress Lungs: Diminished Cardiovascular: Regular rate, Regular Rhythm Abdomen: Soft, Non Tender, Non-Distended Skin: No rashes Laboratory Results 06/19/19 05:40: WBC 4.0 L, RBC 4.55, Hgb 13.4, Hct 42.6, MCV 93.6 D, MCH 29.5, MCHC 31.5 L, RDW Std Deviation 44.1 H, RDW Coeff of Viktoriya 12.9, Plt Count 180, MPV 10.4, Immature Gran % (Auto) 0.300, Neut % (Auto) 67.1, Lymph % (Auto) 27.3, [place] % (Auto) 5.0, Eos % (Auto) 0.0, Baso % (Auto) 0.3, Absolute Neuts (auto) 2.7, Absolute Lymphs (auto) 1.09, Nucleated RBC % 0, Differential Comment SCANNED 06/19/19 05:40: Sodium 138, Potassium 4.2, Chloride 108 H, Carbon Dioxide 20.0 L, Anion Gap 10, BUN 15, Creatinine 0.84, Estim Creat Clear Calc 82.25, Est GFR (MDRD) Af Amer 94, Est GFR (MDRD) Non-Af 78, BUN/Creatinine Ratio 17.8, Glucose 91, Calcium 8.2 L, Total Bilirubin 0.50, AST 123 H, ALT 86 H, Alkaline Phosphatase 54, Total Protein 7.6, Albumin 2.8 L, Globulin 4.8 H, Albumin/Globulin Ratio 0.6 L 06/19/19 10:14: Ferritin 882 H, Lactate Dehydrogenase 447 H, Total Creatine Kinase 204 H, Troponin I < 0.015, C-React Prot Ext Range 93.90 H Current Medications Acetaminophen (Tylenol) 650 mg PO Q6H PRN PRN PRN Reason: Pain Score 1-10/Temp > 100.7 F Last Admin: 06/19/19 15:46 Dose: 650 mg Documented by: Albuterol Sulfate (Ventolin Hfa (Sp)) 2 puff INHALATION Q6H PRN PRN PRN Reason: sob/wheezing Last Admin: 06/19/19 06:21 Dose: 2 puff Documented by: Dextrose (D50w Syringe) 0 gm IV X1 PRN; Protocol PRN Reason: Hypoglycemia Enoxaparin Sodium (Lovenox) 40 mg SC BID [facility] Last Admin: 06/19/19 09:21 Dose: 40 mg Documented by: Glucagon () 1 mg IM .X1 PRN PRN Reason: Hypoglycemia Guaifenesin (Mucinex) 1,200 mg PO BID [facility] Last Admin: 06/19/19 09:24 Dose: 1,200 mg Documented by: Sodium Chloride () 250 mls @ 15 mls/hr IV .[id number] PRN PRN Reason: Saline Flush Last Infusion: 06/19/19 16:26 Dose: 15 mls/hr Documented by: Sodium Chloride () 250 mls @ 15 mls/hr IV .[id number] PRN PRN Reason: Additional IVPB Infusion Piperacillin Sod/Tazobactam (Sod 3.375 gm/ Sodium Chloride) 50 mls @ 12.5 mls/hr IV Q8 [facility] Last Infusion: 06/19/19 16:26 Dose: Infused Documented by: Ibuprofen (Motrin) 400 mg PO Q4H PRN PRN PRN Reason: Pain Score 1-10/Temp > 100.7 F Last Admin: 06/19/19 06:21 Dose: 400 mg Documented by: Miscellaneous Information (Pocket Chamber) 1 each INHALATION Q6H PRN PRN PRN Reason: WITH ALBUTEROL Last Admin: 06/19/19 06:21 Dose: 1 each Documented by: Ondansetron HCl (Zofran) 4 mg IV Q8H PRN PRN PRN Reason: NAUSEA/VOMITING Last Admin: 06/18/19 12:26 Dose: 4 mg Documented by: Potassium Chloride (K-Dur) 40 meq PO DAILYCM RICKEY Last Admin: 06/19/19 09:21 Dose: 40 meq Documented by: Sodium Chloride () 10 - 40 ml IV UD PRN PRN Reason: SALINE FLUSH Last Admin: 06/19/19 11:58 Dose: 10 ml Documented by: Medical Necessity - Tobacco Use Smoking Status: Never smoker Route of nutrition/ use of supplements: [] Nutritional Intake: [] IV Site: [] Gonzales Catheter: [] - Assessment/Plan Antibiotics: [] Assessment/Plan: [] Active and Suspected Problems Pneumonia (Acute) COVID (+) with hypoxia - worsened O2, repeated labs. Abx broadened from ceftriaxone to zosyn, but at this point low suspicion for bacterial pneumonia. Wbc remains normal. She is to try awake proning as much as able. Will follow, d/w Dr. Pozo.
[2019-06-20 02:00] VITALS: PULSE 77; RESP 20; O2SAT 94
[2019-06-20 04:45] VITALS: BP 118/76; PULSE 71; RESP 18; TEMP 36.9; O2SAT 95
[2019-06-20 08:49] VITALS: BP 121/75; PULSE 66; RESP 20; TEMP 36.8; O2SAT 100
[2019-06-20] MEDS: Enoxaparin 40 MG/0.4 ML Syringe SC ×2 (09:02→20:39)
[2019-06-20] MEDS: Acetaminophen 325 MG Tablet 650 MG PO (09:03)
[2019-06-20] MEDS: guaiFENesin 1,200 MG Tablet 1200 MG PO ×2 (09:03→20:39)
[2019-06-20 09:17] LABS: Absolute Neutrophil Count 1.6 X10^3/uL (2.0-7.7); Basophil# 0.02 X10^3/uL; Basophil% 0.7 % (0-1); Eosinophil# 0.02 X10^3/uL; Eosinophils% 0.7 % (0-5); Hematocrit 43.8 % (37-47); Hemoglobin 13.1 g/dL (12.0-15.0); Lymphocyte % 39.1 % (19-41); Mean Corp Hgb Conc 29.9 g/dL (32-36); Mean Corpuscular Hgb 29.1 pg (27.0-32.0); Mean Corpuscular Volume 97.3 fL (81-99); Monocyte# 0.27 X10^3/uL; Monocyte% 8.8 % (0-10); NRBC Flagged by Analyzer 0 % (0-5); Neutrophil # 1.55 X10^3/uL (2.7-7.7); Neutrophil % 50.4 % (47-70); POSITIVE MORPHOLOGY YES; Platelet Count 218 K/mm3 (150-450); RBC Distribution Width CV 13.2 % (11.6-14.6); RBC Distribution Width SD 46.6 fl (35.1-43.9); White Blood Count 3.1 K/mm3 (4.4-11.0)
[2019-06-20 09:18] LABS: Differential Indicated SCAN CRITERIA MET
[2019-06-20 10:07] LABS: ALB/GLOB Ratio 0.6 RATIO (0.9-2.4); AST(SGOT) 76 U/L (15-37); Alanine Aminotransfer ALT/SGPT 67 U/L (13-56); Albumin, Serum 2.8 g/dL (3.2-5.0); Alkaline Phosphatase 58 U/L (45-117); Anion Gap 6 (5-15); BUN 14 mg/dL (7-18); BUN/Creat Ratio 17.6 RATIO (10-20); CPK Total, Creatine Kinase 144 U/L (26-192); Calcium,Total 8.4 mg/dL (8.5-10.1); Chloride 109 mmol/L (98-107); Creatinine, Serum 0.79 mg/dL (0.55-1.02); EST Glomerular Filtration Rate 83 mL/min (>60); Est Glom Filt Rate - Afr Amer 101 mL/min (>60); Estimated Creatinine Clearance 87.45 ml/min; GGTP 187 U/L (5-55); Globulin 4.7 g/dL (2.2-4.2); Glucose 83 mg/dL (74-106); LDH 408 U/L (84-246); Potassium 3.8 mmol/L (3.5-5.1); Protein, Total 7.5 g/dL (6.4-8.2); Sodium Level 140 mmol/L (136-145)
[2019-06-20 10:12] LABS: Atypical Lymphocyte 3+ %; Platelet Estimate ADEQUATE (ADEQ); Red Cell Morphology NORM C+C NORMAL (NORM C&C)
--- NOTE | 2019-06-20 10:42 | PCM.PN.ID ---
Patient Problems: Active and Suspected Problems Pneumonia (Acute) COVID-19 (Acute) Subjective: Feeling better, dyspnea improved, no fever overnight. Still some dry cough. - Physical Exam Vitals/I&O's: Vital Signs Temp Pulse Resp BP Pulse Ox 98.3 F 66 20 H 121/75 H 100 06/20/19 08:49 06/20/19 08:49 06/20/19 08:49 06/20/19 08:49 06/20/19 08:49 Oxygen Flow Rate (L/min) 60 Oxygen Delivery Method CPAP Weight: 108 kg Body Mass Index (BMI) 37.3 Intake and Output for Last 24 Hours 06/18/19 06/19/19 06/20/19 23:59 23:59 23:59 Intake Total 1712.5 / 1712.5 1199.75 / 1199.75 404.25 / 404.25 Balance 1712.5 / 1712.5 1199.75 / 1199.75 404.25 / 404.25 General: Alert, Cooperative, No apparent distress Lungs: Diminished Cardiovascular: Regular rate, Regular Rhythm Abdomen: Soft, Non Tender, Non-Distended Skin: No rashes Laboratory Results 06/19/19 10:14: Ferritin 882 H, Lactate Dehydrogenase 447 H, Total Creatine Kinase 204 H, Troponin I < 0.015, C-React Prot Ext Range 93.90 H 06/20/19 09:05: Sodium 140, Potassium 3.8, Chloride 109 H, Carbon Dioxide 25.0, Anion Gap 6, BUN 14, Creatinine 0.79, Estim Creat Clear Calc 87.45, Est GFR (MDRD) Af Amer 101, Est GFR (MDRD) Non-Af 83, BUN/Creatinine Ratio 17.6, Glucose 83, Calcium 8.4 L, Total Bilirubin 0.60, GGT 187 H, AST 76 H, ALT 67 H, Alkaline Phosphatase 58, Lactate Dehydrogenase 408 H, Total Creatine Kinase 144, Troponin I < 0.015, C-React Prot Ext Range 77.40 H, Total Protein 7.5, Albumin 2.8 L, Globulin 4.7 H, Albumin/Globulin Ratio 0.6 L 06/20/19 09:05: WBC 3.1 L, RBC 4.50, Hgb 13.1, Hct 43.8, MCV 97.3, MCH 29.1, MCHC 29.9 L D, RDW Std Deviation 46.6 H, RDW Coeff of Viktoriya 13.2, Plt Count 218, MPV 10.0, Immature Gran % (Auto) 0.300, Neut % (Auto) 50.4, Lymph % (Auto) 39.1, [place] % (Auto) 8.8, Eos % (Auto) 0.7, Baso % (Auto) 0.7, Absolute Neuts (auto) 1.6 L, Absolute Lymphs (auto) 1.20, Nucleated RBC % 0, Diff Path Review May foll, Atypical Lymphocytes 3+, Platelet Estimate ADEQUATE, RBC Morphology NORM C+C Current Medications Acetaminophen (Tylenol) 650 mg PO Q6H PRN PRN PRN Reason: Pain Score 1-10/Temp > 100.7 F Last Admin: 06/20/19 09:03 Dose: 650 mg Documented by: Albuterol Sulfate (Ventolin Hfa (Sp)) 2 puff INHALATION Q6H PRN PRN PRN Reason: sob/wheezing Last Admin: 06/19/19 06:21 Dose: 2 puff Documented by: Dextrose (D50w Syringe) 0 gm IV X1 PRN; Protocol PRN Reason: Hypoglycemia Enoxaparin Sodium (Lovenox) 40 mg SC BID [facility] Last Admin: 06/20/19 09:02 Dose: 40 mg Documented by: Glucagon () 1 mg IM .X1 PRN PRN Reason: Hypoglycemia Guaifenesin (Mucinex) 1,200 mg PO BID [facility] Last Admin: 06/20/19 09:03 Dose: 1,200 mg Documented by: Sodium Chloride () 250 mls @ 15 mls/hr IV .[id number] PRN PRN Reason: Saline Flush Last Infusion: 06/20/19 04:48 Dose: 0 mls/hr Documented by: Sodium Chloride () 250 mls @ 15 mls/hr IV .[id number] PRN PRN Reason: Additional IVPB Infusion Piperacillin Sod/Tazobactam (Sod 3.375 gm/ Sodium Chloride) 50 mls @ 12.5 mls/hr IV Q8 RICKEY Last Infusion: 06/20/19 09:10 Dose: Infused Documented by: Ibuprofen (Motrin) 400 mg PO Q4H PRN PRN PRN Reason: Pain Score 1-10/Temp > 100.7 F Last Admin: 06/19/19 21:13 Dose: 400 mg Documented by: Miscellaneous Information (Pocket Chamber) 1 each INHALATION Q6H PRN PRN PRN Reason: WITH ALBUTEROL Last Admin: 06/19/19 06:21 Dose: 1 each Documented by: Ondansetron HCl (Zofran) 4 mg IV Q8H PRN PRN PRN Reason: NAUSEA/VOMITING Last Admin: 06/18/19 12:26 Dose: 4 mg Documented by: Potassium Chloride (K-Dur) 40 meq PO DAILYCM RICKEY Last Admin: 06/20/19 09:03 Dose: 40 meq Documented by: Sodium Chloride () 10 - 40 ml IV UD PRN PRN Reason: SALINE FLUSH Last Admin: 06/19/19 21:11 Dose: 10 ml Documented by: Medical Necessity - Tobacco Use Smoking Status: Never smoker Route of nutrition/ use of supplements: [] Nutritional Intake: [] IV Site: [] Gonzales Catheter: [] - Assessment/Plan Antibiotics: [] Assessment/Plan: [] Active and Suspected Problems Pneumonia (Acute) COVID (+) with hypoxia - overall feeling better today, still on increased FiO2. Labs trending in right direction, fever resolved. Will check ddimer in AM. On zosyn, overall low suspicion of bacterial process. Will plan on stopping tomorrow. Will follow, d/w Dr. Pozo.
[2019-06-20 13:52] VITALS: PULSE 74; RESP 20; O2SAT 96
--- NOTE | 2019-06-20 14:00 | PCM.PN.HOSP ---
Patient Problems: Active and Suspected Problems Pneumonia (Acute) COVID-19 (Acute) Reason for Visit: COVID-19 pneumonia with acute hypoxic respiratory failure Objective: Patient feeling slightly better. Dyspnea improved. No fever overnight. Last fever, T8 102.4 Fahrenheit was on 06/18/2019. No nausea, vomiting or diarrhea. Vitals/I&O's: Vital Signs Temp Pulse Resp BP Pulse Ox 98.3 F 74 20 H 121/75 H 96 06/20/19 08:49 06/20/19 13:52 06/20/19 13:52 06/20/19 08:49 06/20/19 13:52 Oxygen Flow Rate (L/min) 60 Oxygen Delivery Method CPAP Weight: 238 lb 1.588 oz Body Mass Index (BMI) 37.3 Intake and Output for Last 24 Hours 06/18/19 06/19/19 06/20/19 23:59 23:59 23:59 Intake Total 1712.5 / 1712.5 1199.75 / 1199.75 704.25 / 704.25 Balance 1712.5 / 1712.5 1199.75 / 1199.75 704.25 / 704.25 General: Alert, Oriented x3, Cooperative HEENT: Atraumatic, PERRLA, EOMI, Normocephalic Neck: Supple, No JVD, Negative Carotid Bruits Lungs: No rhonchi, No wheeze, No rales, Diminished Cardiovascular: Regular rate, Regular Rhythm, Normal S1, Normal S2, No murmurs Abdomen: Bowel Sounds Present, Soft, Non Tender, Non-Distended Extremities: No edema, Capillary Refill Less than 3 Seconds Skin: No rashes, No breakdown Musculoskeletal: No Tenderness to Palpation of Joints or Extremities Neurological: Cranial nerves II-XII grossly intact Psych/Mental Status: Normal Affect, Appropriate Laboratory Results 06/20/19 09:05: Sodium 140, Potassium 3.8, Chloride 109 H, Carbon Dioxide 25.0, Anion Gap 6, BUN 14, Creatinine 0.79, Estim Creat Clear Calc 87.45, Est GFR (MDRD) Af Amer 101, Est GFR (MDRD) Non-Af 83, BUN/Creatinine Ratio 17.6, Glucose 83, Calcium 8.4 L, Total Bilirubin 0.60, GGT 187 H, AST 76 H, ALT 67 H, Alkaline Phosphatase 58, Lactate Dehydrogenase 408 H, Total Creatine Kinase 144, Troponin I < 0.015, C-React Prot Ext Range 77.40 H, Total Protein 7.5, Albumin 2.8 L, Globulin 4.7 H, Albumin/Globulin Ratio 0.6 L 06/20/19 09:05: WBC 3.1 L, RBC 4.50, Hgb 13.1, Hct 43.8, MCV 97.3, MCH 29.1, MCHC 29.9 L D, RDW Std Deviation 46.6 H, RDW Coeff of Viktoriya 13.2, Plt Count 218, MPV 10.0, Immature Gran % (Auto) 0.300, Neut % (Auto) 50.4, Lymph % (Auto) 39.1, [place] % (Auto) 8.8, Eos % (Auto) 0.7, Baso % (Auto) 0.7, Absolute Neuts (auto) 1.6 L, Absolute Lymphs (auto) 1.20, Nucleated RBC % 0, Diff Path Review May foll, Atypical Lymphocytes 3+, Platelet Estimate ADEQUATE, RBC Morphology NORM C+C Current Medications Acetaminophen (Tylenol) 650 mg PO Q6H PRN PRN PRN Reason: Pain Score 1-10/Temp > 100.7 F Last Admin: 06/20/19 09:03 Dose: 650 mg Documented by: Albuterol Sulfate (Ventolin Hfa (Sp)) 2 puff INHALATION Q6H PRN PRN PRN Reason: sob/wheezing Last Admin: 06/19/19 06:21 Dose: 2 puff Documented by: Dextrose (D50w Syringe) 0 gm IV X1 PRN; Protocol PRN Reason: Hypoglycemia Enoxaparin Sodium (Lovenox) 40 mg SC BID [facility] Last Admin: 06/20/19 09:02 Dose: 40 mg Documented by: Glucagon () 1 mg IM .X1 PRN PRN Reason: Hypoglycemia Guaifenesin (Mucinex) 1,200 mg PO BID [facility] Last Admin: 06/20/19 09:03 Dose: 1,200 mg Documented by: Sodium Chloride () 250 mls @ 15 mls/hr IV .[id number] PRN PRN Reason: Saline Flush Last Infusion: 06/20/19 04:48 Dose: 0 mls/hr Documented by: Sodium Chloride () 250 mls @ 15 mls/hr IV .[id number] PRN PRN Reason: Additional IVPB Infusion Piperacillin Sod/Tazobactam (Sod 3.375 gm/ Sodium Chloride) 50 mls @ 12.5 mls/hr IV Q8 [facility] Last Infusion: 06/20/19 09:10 Dose: Infused Documented by: Ibuprofen (Motrin) 400 mg PO Q4H PRN PRN PRN Reason: Pain Score 1-10/Temp > 100.7 F Last Admin: 06/19/19 21:13 Dose: 400 mg Documented by: Miscellaneous Information (Pocket Chamber) 1 each INHALATION Q6H PRN PRN PRN Reason: WITH ALBUTEROL Last Admin: 06/19/19 06:21 Dose: 1 each Documented by: Ondansetron HCl (Zofran) 4 mg IV Q8H PRN PRN PRN Reason: NAUSEA/VOMITING Last Admin: 06/18/19 12:26 Dose: 4 mg Documented by: Potassium Chloride (K-Dur) 40 meq PO DAILYCM RICKEY Last Admin: 06/20/19 09:03 Dose: 40 meq Documented by: Sodium Chloride () 10 - 40 ml IV UD PRN PRN Reason: SALINE FLUSH Last Admin: 06/19/19 21:11 Dose: 10 ml Documented by: STROKE Vital Signs/Narrative: Vital Signs Pulse Resp Pulse Ox 06/20/19 13:52 74 20 H 96 Medical Necessity - Tobacco Use Smoking Status: Never smoker Assessment/Plan All Active Problems Pneumonia (Acute) COVID-19 (Acute) 44-year-old female who is admitted after she fell ill since June 08 with sore throat which progressed to shortness of breath, hypoxia and fever. She is tested positive of COVID-19. 1. COVID-19 pneumonia with acute hypoxic respiratory insufficiency: The patient initially started on IV ceftriaxone and azithromycin. Azithromycin discontinued on 06/16. ID consulted and discussed with him. Urinary antigens are negative. Rapid influenza test negative. CT chest reviewed and shows bilateral perihilar and lower lobe pulmonary infiltrates worse at lung bases consistent with pneumonitis/pneumonia. D-dimer is 0.62. Patient has mild leukopenia 2.7 thousand, thrombocytopenia 139,000. Liver test, slight improvement in transaminases. On 06/17: D-dimer is elevated 0.58. Leukopenic. Discussed with ID. 06/18, patient is more hypoxic on 6 L of oxygen now. Discussed with ID and post acute care nurse. start on the AIRVO. Initially, she and her stated she did not want to get intubated but when she gets unresponsive or unconscious wants intubated. I talked to both patient and her , Mr. Gary Oh [phone]. Antibiotic broadened to IV Zosyn. Inflammatory markers CRP, ferritin, LDH, troponin and CPK ordered. 06/19: Discussed with ID. Continue same treatment. Labs reviewed. Patient still leukopenia, WBC 3.1 thousand. Inflammatory markers LDH CRP are better. Total CK 144 improved. 2. Acute hypoxic respiratory insufficiency: Secondary to pneumonia. No PE Bronchopulmonary hygiene. 06/18: As mentioned above : Patient was put on high flow oxygen Airvo on 06/18. Currently on 44% FiO2, 60 L/min flow rate. 3. VTE prophylaxis: Discussed with ID. Moderate to high risk. On Lovenox 40 mg sq twice daily. 4. Advanced care planning: Discussed with the patient. Patient wishes to be full CODE STATUS. Total time of the visit including total time spent in counseling or coordination of care, (more than 50% of the total time, spent in obtaining medical information from nurses and other ancillary care providers), discussion with consultants, review of labs and imaging is 30 minutes Living will/advanced directive/end of life care: Patient does not have living will or advanced directive. After discussion of procedures involved with full code, DNR CC arrest and DNR CC, initially she did not want to get intubated but if she gets unresponsive/unconscious wants to be intubated. Practically, she will be full code. Total time spent in [id number] encounter in discussion of advanced directive 16 minutes. Laboratory Results 06/20/19 09:05: Sodium 140, Potassium 3.8, Chloride 109 H, Carbon Dioxide 25.0, Anion Gap 6, BUN 14, Creatinine 0.79, Estim Creat Clear Calc 87.45, Est GFR (MDRD) Af Amer 101, Est GFR (MDRD) Non-Af 83, BUN/Creatinine Ratio 17.6, Glucose 83, Calcium 8.4 L, Total Bilirubin 0.60, GGT 187 H, AST 76 H, ALT 67 H, Alkaline Phosphatase 58, Lactate Dehydrogenase 408 H, Total Creatine Kinase 144, Troponin I < 0.015, C-React Prot Ext Range 77.40 H, Total Protein 7.5, Albumin 2.8 L, Globulin 4.7 H, Albumin/Globulin Ratio 0.6 L 06/20/19 09:05: WBC 3.1 L, RBC 4.50, Hgb 13.1, Hct 43.8, MCV 97.3, MCH 29.1, MCHC 29.9 L D, RDW Std Deviation 46.6 H, RDW Coeff of Viktoriya 13.2, Plt Count 218, MPV 10.0, Immature Gran % (Auto) 0.300, Neut % (Auto) 50.4, Lymph % (Auto) 39.1, [place] % (Auto) 8.8, Eos % (Auto) 0.7, Baso % (Auto) 0.7, Absolute Neuts (auto) 1.6 L, Absolute Lymphs (auto) 1.20, Nucleated RBC % 0, Diff Path Review May foll, Atypical Lymphocytes 3+, Platelet Estimate ADEQUATE, RBC Morphology NORM C+C Clinical Impression(s) from Imaging Studies Chest X-Ray 06/15/19 16:45 IMPRESSION: Patchy opacities left lower lobe suspicious for pneumonia. Electronically Signed: Lizzeth Little MD at 17:12 EDT Tel , Service support , Chest CTA 06/16/19 02:05 IMPRESSION: There is no demonstrated pulmonary embolism. Normal thoracic aorta and visualized great vessels. There is no demonstrated aortic dissection. Normal heart and pericardium. There borderline enlarged bilateral hilar lymph nodes which could be reactive. There are multifocal bilateral perihilar and lower lobe pulmonary infiltrates worse at the lung bases consistent with pneumonitis. There is a 6 mm noncalcified nodule in the RIGHT upper lung which could be a granuloma. Neoplastic nodule considered less likely but not excluded. Short-term follow-up suggested. There is NO pleural effusion or pneumothorax. Images of the upper abdomen demonstrate hepatomegaly with fatty infiltration. There is cholelithiasis. Inpatient E&M: 68330 Subs Hosp L3
[2019-06-20 15:16] VITALS: BP 117/74; PULSE 77; RESP 18; TEMP 36.7; O2SAT 96
[2019-06-20 20:34] VITALS: BP 125/83; PULSE 73; RESP 18; TEMP 37.1; O2SAT 98
[2019-06-20] MEDS: Ibuprofen 400 MG Tablet PO (20:39)
[2019-06-21] VITALS (8 sets, daily range): BP systolic 107–122; BP diastolic 69–83; PULSE 63–83; RESP 16–20; TEMP 36.7–36.9; O2SAT 93–96
[2019-06-21 06:10] LABS: Absolute Lymphocyte Count 1.95 X10^3/uL (0.83-4.51); Absolute Neutrophil Count 1.8 X10^3/uL (2.0-7.7); Basophil# 0.01 X10^3/uL; Basophil% 0.2 % (0-1); Eosinophil# 0.06 X10^3/uL; Eosinophils% 1.4 % (0-5); Hematocrit 35.6 % (37-47); Hemoglobin 11.5 g/dL (12.0-15.0); Lymphocyte # 1.95 X10^3/ul (4.0); Lymphocyte % 46.3 % (19-41); Mean Corp Hgb Conc 32.3 g/dL (32-36); Mean Corpuscular Hgb 29.4 pg (27.0-32.0); Mean Platelet Vol. 9.8 fl (6.2-12.0); Monocyte# 0.41 X10^3/uL; Monocyte% 9.7 % (0-10); NRBC Flagged by Analyzer 0 % (0-5); Neutrophil # 1.75 X10^3/uL (2.7-7.7); Neutrophil % 41.7 % (47-70); POSITIVE MORPHOLOGY YES; Platelet Count 268 K/mm3 (150-450); RBC Distribution Width SD 43.4 fl (35.1-43.9); Red Blood Count 3.91 M/mm3 (4.2-5.4); White Blood Count 4.2 K/mm3 (4.4-11.0)
[2019-06-21 06:12] LABS: Differential Indicated SCAN CRITERIA MET
[2019-06-21 06:24] LABS: D-Dimer Quantitative (DVT/PE) 0.51 FEU/ug/m (0.27-0.49)
[2019-06-21 06:31] LABS: Differential Comment SCANNED
[2019-06-21 06:33] LABS: Reactive Lymphocyte 1+
[2019-06-21 06:37] LABS: ALB/GLOB Ratio 0.6 RATIO (0.9-2.4); AST(SGOT) 70 U/L (15-37); Alanine Aminotransfer ALT/SGPT 61 U/L (13-56); Albumin, Serum 2.6 g/dL (3.2-5.0); Alkaline Phosphatase 66 U/L (45-117); Anion Gap 6 (5-15); BUN 12 mg/dL (7-18); BUN/Creat Ratio 14.4 RATIO (10-20); Calcium,Total 8.4 mg/dL (8.5-10.1); Chloride 107 mmol/L (98-107); Creatinine, Serum 0.84 mg/dL (0.55-1.02); EST Glomerular Filtration Rate 78 mL/min (>60); Est Glom Filt Rate - Afr Amer 95 mL/min (>60); Estimated Creatinine Clearance 82.25 ml/min; Globulin 4.6 g/dL (2.2-4.2); Glucose 88 mg/dL (74-106); Potassium 3.8 mmol/L (3.5-5.1); Protein, Total 7.2 g/dL (6.4-8.2); Sodium Level 140 mmol/L (136-145)
[2019-06-21 06:41] LABS: Ferritin 696 ng/mL (8-252)
--- NOTE | 2019-06-21 08:48 | PN_ITS ---
Patient Problems: Active and Suspected Problems Pneumonia (Acute) COVID-19 (Acute) Reason for Visit: COVID-19 pneumonia Objective: Patient did not had fever for last 48 hours. Last fever was 102.4 Fahrenheit at 10:30 PM on 06/18/2019. Oxygenation is getting better. Patient switched off from AIRVO to oxygen through nasal cannula 4 to 5 L/min Exam findings: General: Alert, Oriented x3, Cooperative HEENT: Atraumatic, PERRLA, EOMI, Normocephalic Neck: Supple, No JVD, Negative Carotid Bruits Lungs: No rhonchi, No wheeze, No rales, air entry bilaterally diminished Cardiovascular: Regular rate, Regular Rhythm, Normal S1, Normal S2, No murmurs Abdomen: Bowel Sounds Present, Soft, Non Tender, Non-Distended Extremities: No edema, Capillary Refill Less than 3 Seconds Skin: No rashes, No breakdown Musculoskeletal: No Tenderness to Palpation of Joints or Extremities Neurological: Cranial nerves II-XII grossly intact Psych/Mental Status: Normal Affect, Appropriate Vitals/I&O's: Vital Signs Temp Pulse Resp BP Pulse Ox 98.4 F 75 20 H 111/79 96 06/21/19 02:19 06/21/19 07:05 06/21/19 07:05 06/21/19 02:19 06/21/19 07:05 Oxygen Flow Rate (L/min) 60 Oxygen Delivery Method CPAP Weight: 238 lb 1.588 oz Body Mass Index (BMI) 37.3 Intake and Output for Last 24 Hours 06/19/19 06/20/19 06/21/19 23:59 23:59 23:59 Intake Total 1199.75 / 1199.75 1016.00 / 1016.00 602.75 / 602.75 Balance 1199.75 / 1199.75 1016.00 / 1016.00 602.75 / 602.75 Laboratory Results 06/20/19 09:05: Sodium 140, Potassium 3.8, Chloride 109 H, Carbon Dioxide 25.0, Anion Gap 6, BUN 14, Creatinine 0.79, Estim Creat Clear Calc 87.45, Est GFR (MDRD) Af Amer 101, Est GFR (MDRD) Non-Af 83, BUN/Creatinine Ratio 17.6, Glucose 83, Calcium 8.4 L, Total Bilirubin 0.60, GGT 187 H, AST 76 H, ALT 67 H, Alkaline Phosphatase 58, Lactate Dehydrogenase 408 H, Total Creatine Kinase 144, Troponin I < 0.015, C-React Prot Ext Range 77.40 H, Total Protein 7.5, Albumin 2.8 L, Globulin 4.7 H, Albumin/Globulin Ratio 0.6 L 06/20/19 09:05: WBC 3.1 L, RBC 4.50, Hgb 13.1, Hct 43.8, MCV 97.3, MCH 29.1, MCHC 29.9 L D, RDW Std Deviation 46.6 H, RDW Coeff of Viktoriya 13.2, Plt Count 218, MPV 10.0, Immature Gran % (Auto) 0.300, Neut % (Auto) 50.4, Lymph % (Auto) 39.1, [place] % (Auto) 8.8, Eos % (Auto) 0.7, Baso % (Auto) 0.7, Absolute Neuts (auto) 1.6 L, Absolute Lymphs (auto) 1.20, Nucleated RBC % 0, Diff Path Review May foll, Atypical Lymphocytes 3+, Platelet Estimate ADEQUATE, RBC Morphology NORM C+C 06/21/19 05:48: Ferritin 696 H 06/21/19 05:48: WBC 4.2 L, RBC 3.91 L, Hgb 11.5 L, Hct 35.6 L, MCV 91.0 D, MCH 29.4, MCHC 32.3 D, RDW Std Deviation 43.4, RDW Coeff of Viktoriya 13.0, Plt Count 268, MPV 9.8, Immature Gran % (Auto) 0.700, Neut % (Auto) 41.7 L, Lymph % (Auto) 46.3 H, [place] % (Auto) 9.7, Eos % (Auto) 1.4, Baso % (Auto) 0.2, Absolute Neuts (auto) 1.8 L, Absolute Lymphs (auto) 1.95, Nucleated RBC % 0, Differential Comment SCANNED, Reactive Lymphocytes 1+ 06/21/19 05:48: Sodium 140, Potassium 3.8, Chloride 107, Carbon Dioxide 27.0, Anion Gap 6, BUN 12, Creatinine 0.84, Estim Creat Clear Calc 82.25, Est GFR (MDRD) Af Amer 95, Est GFR (MDRD) Non-Af 78, BUN/Creatinine Ratio 14.4, Glucose 88, Calcium 8.4 L, Total Bilirubin 0.40, AST 70 H, ALT 61 H, Alkaline Phosphatase 66, Total Protein 7.2, Albumin 2.6 L, Globulin 4.6 H, Albumin/Globulin Ratio 0.6 L 06/21/19 05:48: D-Dimer Quant (PE/DVT) 0.51 H* Current Medications Acetaminophen (Tylenol) 650 mg PO Q6H PRN PRN PRN Reason: Pain Score 1-10/Temp > 100.7 F Last Admin: 06/20/19 09:03 Dose: 650 mg Documented by: Albuterol Sulfate (Ventolin Hfa (Sp)) 2 puff INHALATION Q6H PRN PRN PRN Reason: sob/wheezing Last Admin: 06/19/19 06:21 Dose: 2 puff Documented by: Dextrose (D50w Syringe) 0 gm IV X1 PRN; Protocol PRN Reason: Hypoglycemia Enoxaparin Sodium (Lovenox) 40 mg SC BID [facility] Last Admin: 06/20/19 20:39 Dose: 40 mg Documented by: Glucagon () 1 mg IM .X1 PRN PRN Reason: Hypoglycemia Guaifenesin (Mucinex) 1,200 mg PO BID [facility] Last Admin: 06/20/19 20:39 Dose: 1,200 mg Documented by: Sodium Chloride () 250 mls @ 15 mls/hr IV .[id number] PRN PRN Reason: Saline Flush Last Infusion: 06/21/19 05:30 Dose: 0 mls/hr Documented by: Sodium Chloride () 250 mls @ 15 mls/hr IV .[id number] PRN PRN Reason: Additional IVPB Infusion Piperacillin Sod/Tazobactam (Sod 3.375 gm/ Sodium Chloride) 50 mls @ 12.5 mls/hr IV Q8 [facility] Last Admin: 06/21/19 05:31 Dose: 12.5 mls/hr Documented by: Ibuprofen (Motrin) 400 mg PO Q4H PRN PRN PRN Reason: Pain Score 1-10/Temp > 100.7 F Last Admin: 06/20/19 20:39 Dose: 400 mg Documented by: Miscellaneous Information (Pocket Chamber) 1 each INHALATION Q6H PRN PRN PRN Reason: WITH ALBUTEROL Last Admin: 06/19/19 06:21 Dose: 1 each Documented by: Ondansetron HCl (Zofran) 4 mg IV Q8H PRN PRN PRN Reason: NAUSEA/VOMITING Last Admin: 06/18/19 12:26 Dose: 4 mg Documented by: Potassium Chloride (K-Dur) 40 meq PO DAILYCM RICKEY Last Admin: 06/20/19 09:03 Dose: 40 meq Documented by: Sodium Chloride () 10 - 40 ml IV UD PRN PRN Reason: SALINE FLUSH Last Admin: 06/19/19 21:11 Dose: 10 ml Documented by: STROKE Vital Signs/Narrative: Vital Signs Pulse Resp Pulse Ox 06/21/19 07:05 75 20 H 96 Medical Necessity - Tobacco Use Smoking Status: Never smoker Assessment/Plan All Active Problems Pneumonia (Acute) COVID-19 (Acute) 44-year-old female who is admitted after she fell ill since June 08 with sore throat which progressed to shortness of breath, hypoxia and fever. She is tested positive of COVID-19. 1. COVID-19 pneumonia with acute hypoxic respiratory insufficiency: The patient initially started on IV ceftriaxone and azithromycin. Azithromycin discontinued on 06/16. ID consulted and discussed with him. Urinary antigens are negative. Rapid influenza test negative. CT chest reviewed and s hows bilateral perihilar and lower lobe pulmonary infiltrates worse at lung bases consistent with pneumonitis/pneumonia. D-dimer is 0.62. Patient has mild leukopenia 2.7 thousand, thrombocytopenia 139,000. Liver test, slight improvement in transaminases. On 06/17: D-dimer is elevated 0.58. Leukopenic. Discussed with ID. 06/18, patient is more hypoxic on 6 L of oxygen now. Discussed with ID and mechanic/welder. start on the AIRVO. Initially, she and her stated she did not want to get intubated but when she gets unresponsive or unconscious wants intubated. I talked to both patient and her , Mr. Gary Oh [phone]. Antibiotic broadened to IV Zosyn. Inflammatory markers CRP, ferritin, LDH, troponin and CPK ordered. 06/19: Discussed with ID. Continue same treatment. Labs reviewed. Patient still leukopenia, WBC 3.1 thousand. Inflammatory markers LDH CRP are better. Total CK 144 improved. 06/20: Discussed with ID. Ferritin level, CRP and other inflammatory markers getting better. WBC count improved to 4.2 thousand and platelet count 268. D- dimer decreased. Therefore, no need to further follow-up inflammatory markers until clinically she deteriorates but overall she is improving. 2. Acute hypoxic respiratory insufficiency: * Secondary to pneumonia. No PE * Bronchopulmonary hygiene. 06/18: As mentioned above 06/20: AIRVO changed to nasal cannula. Keep pulse ox more than 90% 3. VTE prophylaxis: Discussed with ID. Moderate to high risk. On Lovenox 40 mg sq twice daily. 4. Advanced care planning: Discussed with the patient. Patient wishes to be full CODE STATUS. Total time of the visit including total time spent in counseling or coordination of care, (more than 50% of the total time, spent in obtaining medical information from nurses and other ancillary care providers), discussion with consultants, review of labs and imaging is 30 minutes Living will/advanced directive/end of life care: Patient does not have living wi ll or advanced directive. After discussion of procedures involved with full code, DNR CC arrest and DNR CC, initially she did not want to get intubated but if she gets unresponsive/unconscious wants to be intubated. Practically, she will be full code. Total time spent in [id number] encounter in discussion of advanced directive 16 minutes. Laboratory Results 06/20/19 09:05: Diff Path Review Reviewed 06/21/19 05:48: Ferritin 696 H 06/21/19 05:48: WBC 4.2 L, RBC 3.91 L, Hgb 11.5 L, Hct 35.6 L, MCV 91.0 D, MCH 29.4, MCHC 32.3 D, RDW Std Deviation 43.4, RDW Coeff of Viktoriya 13.0, Plt Count 268, MPV 9.8, Immature Gran % (Auto) 0.700, Neut % (Auto) 41.7 L, Lymph % (Auto) 46.3 H, [place] % (Auto) 9.7, Eos % (Auto) 1.4, Baso % (Auto) 0.2, Absolute Neuts ( auto) 1.8 L, Absolute Lymphs (auto) 1.95, Nucleated RBC % 0, Differential Comment SCANNED, Reactive Lymphocytes 1+ 06/21/19 05:48: Sodium 140, Potassium 3.8, Chloride 107, Carbon Dioxide 27.0, Anion Gap 6, BUN 12, Creatinine 0.84, Estim Creat Clear Calc 82.25, Est GFR (MDRD) Af Amer 95, Est GFR (MDRD) Non-Af 78, BUN/Creatinine Ratio 14.4, Glucose 88, Calcium 8.4 L, Total Bilirubin 0.40, AST 70 H, ALT 61 H, Alkaline Phosphatase 66, Total Protein 7.2, Albumin 2.6 L, Globulin 4.6 H, Albumin/Globulin Ratio 0.6 L 06/21/19 05:48: D-Dimer Quant (PE/DVT) 0.51 H* Clinical Impression(s) from Imaging Studies Chest X-Ray 06/15/19 16:45 IMPRESSION: Patchy opacities left lower lobe suspicious for pneumonia. Electronically Signed: Lizzeth Little MD at 17:12 EDT Tel , Service support , Chest CTA 06/16/19 02:05 IMPRESSION: There is no demonstrated pulmonary embolism. Normal thoracic aorta and visualized great vessels. There is no demonstrated aortic dissection. Normal heart and pericardium. There borderline enlarged bilateral hilar lymph nodes which could be reactive. There are multifocal bilateral perihilar and lower lobe pulmonary infiltrates worse at the lung bases consistent with pneumonitis. There is a 6 mm noncalcified nodule in the RIGHT upper lung which could be a granuloma. Neoplastic nodule considered less likely but not excluded. Short-term follow-up suggested. There is NO pleural effusion or pneumothorax. Images of the upper abdomen demonstrate hepatomegaly with fatty infiltration. There is cholelithiasis. Inpatient E&M: 86701 Subs Hosp L3
[2019-06-21] MEDS: guaiFENesin 1,200 MG Tablet 1200 MG PO ×2 (09:02→21:08)
[2019-06-21] MEDS: Enoxaparin 40 MG/0.4 ML Syringe SC ×2 (09:02→21:10)
[2019-06-21 10:41] LABS: Pathologist Review Reviewed
[2019-06-21] MEDS: Polyethylene Glycol 3350 17 GM PACKET PO (12:32)
--- NOTE | 2019-06-21 13:48 | PN.ID_ITS ---
Patient Problems: Active and Suspected Problems Pneumonia (Acute) COVID-19 (Acute) Subjective: Feeling better, no fever, still some dyspnea/cough. - Physical Exam Vitals/I&O's: Vital Signs Temp Pulse Resp BP Pulse Ox 98.2 F 83 18 119/83 H 94 06/21/19 09:00 06/21/19 09:00 06/21/19 09:00 06/21/19 09:00 06/21/19 13:17 Oxygen Flow Rate (L/min) 6 Oxygen Delivery Method Nasal Cannula Weight: 108 kg Body Mass Index (BMI) 37.3 Intake and Output for Last 24 Hours 06/19/19 06/20/19 06/21/19 23:59 23:59 23:59 Intake Total 1199.75 / 1199.75 1016.00 / 1016.00 1004.25 / 1004.25 Balance 1199.75 / 1199.75 1016.00 / 1016.00 1004.25 / 1004.25 General: Alert, Cooperative, No apparent distress Lungs: Clear to auscultation, Normal air movement Cardiovascular: Regular rate, Regular Rhythm Abdomen: Soft, Non Tender, Non-Distended Skin: No rashes Laboratory Results 06/20/19 09:05: Diff Path Review Reviewed 06/21/19 05:48: Ferritin 696 H 06/21/19 05:48: WBC 4.2 L, RBC 3.91 L, Hgb 11.5 L, Hct 35.6 L, MCV 91.0 D, MCH 29.4, MCHC 32.3 D, RDW Std Deviation 43.4, RDW Coeff of Viktoriya 13.0, Plt Count 268, MPV 9.8, Immature Gran % (Auto) 0.700, Neut % (Auto) 41.7 L, Lymph % (Auto) 46.3 H, [place] % (Auto) 9.7, Eos % (Auto) 1.4, Baso % (Auto) 0.2, Absolute Neuts (auto) 1.8 L, Absolute Lymphs (auto) 1.95, Nucleated RBC % 0, Differential Comment SCANNED, Reactive Lymphocytes 1+ 06/21/19 05:48: Sodium 140, Potassium 3.8, Chloride 107, Carbon Dioxide 27.0, Anion Gap 6, BUN 12, Creatinine 0.84, Estim Creat Clear Calc 82.25, Est GFR (MDRD) Af Amer 95, Est GFR (MDRD) Non-Af 78, BUN/Creatinine Ratio 14.4, Glucose 88, Calcium 8.4 L, Total Bilirubin 0.40, AST 70 H, ALT 61 H, Alkaline Phosphatase 66, Total Protein 7.2, Albumin 2.6 L, Globulin 4.6 H, Albumin/Globulin Ratio 0.6 L 06/21/19 05:48: D-Dimer Quant (PE/DVT) 0.51 H* Current Medications Acetaminophen (Tylenol) 650 mg PO Q6H PRN PRN PRN Reason: Pain Score 1-10/Temp > 100.7 F Last Admin: 06/20/19 09:03 Dose: 650 mg Documented by: Albuterol Sulfate (Ventolin Hfa (Sp)) 2 puff INHALATION Q6H PRN PRN PRN Reason: sob/wheezing Last Admin: 06/19/19 06:21 Dose: 2 puff Documented by: Dextrose (D50w Syringe) 0 gm IV X1 PRN; Protocol PRN Reason: Hypoglycemia Enoxaparin Sodium (Lovenox) 40 mg SC BID [facility] Last Admin: 06/21/19 09:02 Dose: 40 mg Documented by: Glucagon () 1 mg IM .X1 PRN PRN Reason: Hypoglycemia Guaifenesin (Mucinex) 1,200 mg PO BID [facility] Last Admin: 06/21/19 09:02 Dose: 1,200 mg Documented by: Sodium Chloride () 250 mls @ 15 mls/hr IV .[id number] PRN PRN Reason: Saline Flush Last Infusion: 06/21/19 09:37 Dose: Infused Documented by: Sodium Chloride () 250 mls @ 15 mls/hr IV .[id number] PRN PRN Reason: Additional IVPB Infusion Ibuprofen (Motrin) 400 mg PO Q4H PRN PRN PRN Reason: Pain Score 1-10/Temp > 100.7 F Last Admin: 06/20/19 20:39 Dose: 400 mg Documented by: Miscellaneous Information (Pocket Chamber) 1 each INHALATION Q6H PRN PRN PRN Reason: WITH ALBUTEROL Last Admin: 06/19/19 06:21 Dose: 1 each Documented by: Ondansetron HCl (Zofran) 4 mg IV Q8H PRN PRN PRN Reason: NAUSEA/VOMITING Last Admin: 06/18/19 12:26 Dose: 4 mg Documented by: Polyethylene Glycol (Miralax) 17 gm PO DAILY PRN PRN PRN Reason: Constipation Last Admin: 06/21/19 12:32 Dose: 17 gm Documented by: Potassium Chloride (K-Dur) 40 meq PO DAILYCM RICKEY Last Admin: 06/21/19 09:00 Dose: 40 meq Documented by: Senna/Docusate Sodium (Senokot-S, Dorothy-Colace) 2 tablet PO BID RICKEY Sodium Chloride () 10 - 40 ml IV UD PRN PRN Reason: SALINE FLUSH Last Admin: 06/19/19 21:11 Dose: 10 ml Documented by: Medical Necessity - Tobacco Use Smoking Status: Never smoker Route of nutrition/ use of supplements: [] Nutritional Intake: [] IV Site: [] [place] Catheter: [] - Assessment/Plan Antibiotics: [] Assessment/Plan: [] Active and Suspected Problems Pneumonia (Acute) COVID (+) with hypoxia - overall feeling better today, still on increased FiO2. Labs trending in right direction, fever resolved. Much improved. Will stop zosyn. Will follow, d/w Dr. Pozo.
[2019-06-22 03:10] VITALS: BP 111/74; PULSE 67; RESP 17; TEMP 37.1; O2SAT 94
[2019-06-22 07:41] LABS: Absolute Lymphocyte Count 1.55 X10^3/uL (0.83-4.51); Basophil# 0.02 X10^3/uL; Basophil% 0.5 % (0-1); Eosinophil# 0.03 X10^3/uL; Eosinophils% 0.7 % (0-5); Hematocrit 38.1 % (37-47); Hemoglobin 12.3 g/dL (12.0-15.0); Lymphocyte # 1.55 X10^3/ul (4.0); Lymphocyte % 38.2 % (19-41); Mean Corp Hgb Conc 32.3 g/dL (32-36); Mean Corpuscular Hgb 29.5 pg (27.0-32.0); Mean Corpuscular Volume 91.4 fL (81-99); Mean Platelet Vol. 9.7 fl (6.2-12.0); Monocyte% 9.9 % (0-10); NRBC Flagged by Analyzer 0 % (0-5); Neutrophil # 2.02 X10^3/uL (2.7-7.7); Neutrophil % 49.7 % (47-70); POSITIVE MORPHOLOGY YES; Platelet Count 303 K/mm3 (150-450); RBC Distribution Width CV 12.8 % (11.6-14.6); RBC Distribution Width SD 42.5 fl (35.1-43.9); Red Blood Count 4.17 M/mm3 (4.2-5.4); White Blood Count 4.1 K/mm3 (4.4-11.0)
[2019-06-22 07:43] LABS: Differential Indicated SCAN CRITERIA MET
[2019-06-22 07:57] LABS: ALB/GLOB Ratio 0.6 RATIO (0.9-2.4); AST(SGOT) 76 U/L (15-37); Alanine Aminotransfer ALT/SGPT 61 U/L (13-56); Albumin, Serum 2.6 g/dL (3.2-5.0); Alkaline Phosphatase 67 U/L (45-117); Anion Gap 6 (5-15); BUN 8 mg/dL (7-18); BUN/Creat Ratio 10.9 RATIO (10-20); Calcium,Total 8.9 mg/dL (8.5-10.1); Chloride 109 mmol/L (98-107); Creatinine, Serum 0.73 mg/dL (0.55-1.02); EST Glomerular Filtration Rate 92 mL/min (>60); Est Glom Filt Rate - Afr Amer 111 mL/min (>60); Estimated Creatinine Clearance 94.64 ml/min; Globulin 4.7 g/dL (2.2-4.2); Glucose 87 mg/dL (74-106); Potassium 4.2 mmol/L (3.5-5.1); Protein, Total 7.3 g/dL (6.4-8.2); Sodium Level 140 mmol/L (136-145)
[2019-06-22 08:40] VITALS: BP 119/71; PULSE 78; RESP 16; TEMP 36.8; O2SAT 93
[2019-06-22] MEDS: guaiFENesin 1,200 MG Tablet 1200 MG PO (08:48)
[2019-06-22 08:54] LABS: Reactive Lymphocyte RARE
[2019-06-22 09:45] VITALS: O2SAT 91
[2019-06-22 10:29] VITALS: O2SAT 88
--- NOTE | 2019-06-22 11:30 | DS.PCM_ITS ---
Discharge Date and Diagnosis - Problem List Patient Problems: Active and Suspected Problems Pneumonia (Acute) COVID-19 (Acute) Date of Admission: 06/15/19 Date of Discharge: 06/22/19 - Primary Discharge Diagnosis Active and Suspected Problems Pneumonia (Acute) COVID-19 (Acute) Hospital Course and Treatment Summary of Care Provided: The patient is a 44-year-old female who is admitted after she fell ill since June 08 with sore throat which progressed to shortness of breath, hypoxia and fever. She is tested positive of COVID-19. 1. COVID-19 pneumonia with acute hypoxic respiratory failure The patient initially started on IV ceftriaxone and azithromycin. Azithromycin discontinued on 06/16. ID consulted and discussed with him. Urinary antigens are negative. Rapid influenza test negative. CT chest reviewed and shows bilateral perihilar and lower lobe pulmonary infiltrates worse at lung bases consistent with pneumonitis/pneumonia. D-dimer is 0.62. Patient has mild leukopenia 2.7 thousand, thrombocytopenia 139,000. Liver test, slight improvement in transaminases. Subsequently patient became more hypoxic on 06/19/2019. Discussed with ID and corporate buyer and started on AIRVO. Antibiotic broadened to IV Zosyn. Inflammatory markers CRP, ferritin, LDH, troponin and CPK were followed and it got improved over hospital course. Blood counts also improved, leukopenia resolved. Platelet count improved. Patient completed 7 days of IV antibiotics. Patient has been afebrile for more than 72 hours therefore does not need further antibiotic. 2. Acute hypoxic respiratory failure secondary to COVID-19 pneumonia * Secondary to pneumonia. No PE * Bronchopulmonary hygiene. Patient required high flow oxygen, ARIVO. Patient is ambulatory in home and in the community and requires 2 L/min home oxygen with portability on ambulation. 3. VTE prophylaxis: Discussed with ID. Moderate to high risk. On Lovenox 40 mg sq twice daily. Discharge medication reconciliation done. Discharge follow-up instructions completed. Discharge process discussed with the patient and all questions were answered to patient's satisfaction. Total time spent, exact 35 minutes on discharge meds reconciliation, examination, coordination of care with nurses and ancillary staff, review of imaging and blood test and discussion with the patient on follow-up instructions Patient Problems: Active and Suspected Problems Pneumonia (Acute) COVID-19 (Acute) Subjective: Seen and examined. No fever for about 72 hours last fever was on 06/19/2019 at 12 midnight. At rest pulse ox 90% but on ambulation it dropped to 87 on room air and 94% on 2 L of oxygen. Home oxygen paper signed. Objective: General: Alert, Oriented x3, Cooperative HEENT: Atraumatic, PERRLA, EOMI, Normocephalic Neck: Supple, No JVD, Negative Carotid Bruits Lungs: No rhonchi, No wheeze, No rales, air entry bilaterally diminished but has improved significantly since admission Cardiovascular: Regular rate, Regular Rhythm, Normal S1, Normal S2, No murmurs Abdomen: Bowel Sounds Present, Soft, Non Tender, Non-Distended Extremities: No edema, Capillary Refill Less than 3 Seconds Skin: No rashes, No breakdown Musculoskeletal: No Tenderness to Palpation of Joints or Extremities Neurological: Cranial nerves II-XII grossly intact Psych/Mental Status: Normal Affect, Appropriate - Physical Exam Vitals/I&O's: Vital Signs Temp Pulse Resp BP Pulse Ox 98.2 F 78 16 119/71 88 06/22/19 08:40 06/22/19 08:40 06/22/19 08:40 06/22/19 08:40 06/22/19 10:29 Oxygen Flow Rate (L/min) 3 Oxygen Delivery Method Room Air Weight: 238 lb 1.588 oz Body Mass Index (BMI) 37.3 Intake and Output for Last 24 Hours 06/20/19 06/21/19 06/22/19 23:59 23:59 23:59 Intake Total 1016.00 / 1016.00 1304.25 / 1304.25 750 / 750 Balance 1016.00 / 1016.00 1304.25 / 1304.25 750 / 750 Laboratory Results 06/22/19 06:55: WBC 4.1 L, RBC 4.17 L, Hgb 12.3, Hct 38.1, MCV 91.4, MCH 29.5, MCHC 32.3, RDW Std Deviation 42.5, RDW Coeff of Viktoriya 12.8, Plt Count 303, MPV 9.7, Immature Gran % (Auto) 1.000 H, Neut % (Auto) 49.7, Lymph % (Auto) 38.2, Mccormick % (Auto) 9.9, Eos % (Auto) 0.7, Baso % (Auto) 0.5, Absolute Neuts (auto) 2.0, Absolute Lymphs (auto) 1.55, Nucleated RBC % 0, Reactive Lymphocytes RARE 06/22/19 06:55: Sodium 140, Potassium 4.2, Chloride 109 H, Carbon Dioxide 25.0, Anion Gap 6, BUN 8, Creatinine 0.73, Estim Creat Clear Calc 94.64, Est GFR (MDRD) Af Amer 111, Est GFR (MDRD) Non-Af 92, BUN/Creatinine Ratio 10.9, Glucose 87, Calcium 8.9, Total Bilirubin 0.50, AST 76 H, ALT 61 H, Alkaline Phosphatase 67, Total Protein 7.3, Albumin 2.6 L, Globulin 4.7 H, Albumin/Globulin Ratio 0.6 L Current Medications Acetaminophen (Tylenol) 650 mg PO Q6H PRN PRN PRN Reason: Pain Score 1-10/Temp > 100.7 F Last Admin: 06/20/19 09:03 Dose: 650 mg Documented by: Albuterol Sulfate (Ventolin Hfa (Sp)) 2 puff INHALATION Q6H PRN PRN PRN Reason: sob/wheezing Last Admin: 06/19/19 06:21 Dose: 2 puff Documented by: Dextrose (D50w Syringe) 0 gm IV X1 PRN; Protocol PRN Reason: Hypoglycemia Enoxaparin Sodium (Lovenox) 40 mg SC BID [facility] Last Admin: 06/21/19 21:10 Dose: 40 mg Documented by: Glucagon () 1 mg IM .X1 PRN PRN Reason: Hypoglycemia Guaifenesin (Mucinex) 1,200 mg PO BID [facility] Last Admin: 06/22/19 08:48 Dose: 1,200 mg Documented by: Sodium Chloride () 250 mls @ 15 mls/hr IV .[id number] PRN PRN Reason: Saline Flush Last Infusion: 06/21/19 09:37 Dose: Infused Documented by: Sodium Chloride () 250 mls @ 15 mls/hr IV .[id number] PRN PRN Reason: Additional IVPB Infusion Ibuprofen (Motrin) 400 mg PO Q4H PRN PRN PRN Reason: Pain Score 1-10/Temp > 100.7 F Last Admin: 06/20/19 20:39 Dose: 400 mg Documented by: Miscellaneous Information (Pocket Chamber) 1 each INHALATION Q6H PRN PRN PRN Reason: WITH ALBUTEROL Last Admin: 06/19/19 06:21 Dose: 1 each Documented by: Ondansetron HCl (Zofran) 4 mg IV Q8H PRN PRN PRN Reason: NAUSEA/VOMITING Last Admin: 06/18/19 12:26 Dose: 4 mg Documented by: Polyethylene Glycol (Miralax) 17 gm PO DAILY PRN PRN PRN Reason: Constipation Last Admin: 06/21/19 12:32 Dose: 17 gm Documented by: Potassium Chloride (K-Dur) 40 meq PO DAILYCM [facility] Last Admin: 06/22/19 08:48 Dose: 40 meq Documented by: Senna/Docusate Sodium (Senokot-S, Dorothy-Colace) 2 tablet PO BID [facility] Last Admin: 06/22/19 08:49 Dose: Not Given Documented by: Sodium Chloride () 10 - 40 ml IV UD PRN PRN Reason: SALINE FLUSH Last Admin: 06/19/19 21:11 Dose: 10 ml Documented by: Home Medications: Medications to take at Discharge Albuterol Inhaler [Ventolin Hfa] 2 puff INHALATION Q6H PRN PRN #1 inhaler 06/22/19 Guaifenesin [Mucinex] 1,200 mg PO BID #14 tab 06/22/19 Following Prescrptions Were Given to Patient: Guaifenesin [Mucinex] 1,200 mg PO BID #14 tab Transmission Status: Received by [id number] Albuterol Inhaler [Ventolin Hfa] 2 puff INHALATION Q6H PRN PRN #1 inhaler PRN Reason: sob/wheezing Transmission Status: Received by [facility] Primary Care Physician: Reynaldo Enamorado MD [Primary Care Provider] - Medical Necessity - Tobacco Use Smoking Status: Never smoker Meaningful Use Info Meaningful Use Diagnoses (Choose all that apply): None applicable Inpatient E&M: [address]95[address] [facility]
--- NOTE | 2019-06-22 11:30 | PCM.DC ---
- Discharge Diagnoses Current Active Problems: Current Active and Chronic Problems Pneumonia (Acute) COVID-19 (Acute) You will use the following diet at home:: Regular Your food should be the consistency of: Regular Your liquids should be the consistency of: Regular/Thin Discharge Activity: May Not Drive - until follows PCP Call your doctor if you observe: Fever of 101 or Higher, Numbness or Tingling, Change in Color, Inability to urinate, Inability to have a bowel movement, Shortness of breath, Dizziness, Fainting spells, Swelling in the ankles, Chest pain, Prolonged hiccoughing, Increased palpitations (irregular heartbeat), Calf discomfort, Uncontrolled pain Additional Instructions: 7 MORE DAYS OF Self quarartine at home Allergies/Adverse Reactions: Allergies No Known Allergies Allergy (Verified 06/15/19 15:30) Medications to take at Discharge Albuterol Inhaler [Ventolin Hfa] 2 puff INHALATION Q6H PRN PRN #1 inhaler 06/22/19 Guaifenesin [Mucinex] 1,200 mg PO BID #14 tab 06/22/19 The following prescriptions were given: Guaifenesin [Mucinex] 1,200 mg PO BID #14 tab Transmission Status: Pending to [facility] Albuterol Inhaler [Ventolin Hfa] 2 puff INHALATION Q6H PRN PRN #1 inhaler PRN Reason: sob/wheezing Transmission Status: Pending to [facility] Primary Care Physician: Reynaldo Enamorado MD [Primary Care Provider] - Please follow up with your Primary Care Physician in: in 2 weeks Test Results: Test results from this visit will be discussed in further detail at your follow-up appointment, if applicable. Please Follow Up With: David Bradford MD When: in 2-3 weeks prn. if spikes fever, cough or SOB
[2019-06-22] MEDS: Enoxaparin 40 MG/0.4 ML Syringe SC (12:31)
[2019-06-22 12:40] VITALS: O2SAT 87; O2SAT 90; O2SAT 94
--- NOTE | 2019-06-22 13:21 | CASEMGMT ---
Addendum entered by Edwin Bell 06/22/19 13:48: Oxygen script, demographic sheet, home 02 qualification testing, Face to face d/c summary and d/c instructions all faxed to [facility] at this time. Addendum entered by Edwin Bell 06/22/19 13:44: Sarah LAWSON, made aware awaiting delivery of portable oxygen tank from [facility]. Original Note: [facility] DAO NOTE: Home oxygen testing has been completed. Pt qualifies for Home O2. Call placed to pt's room and spoke with pt. Inquired about what DME company she prefers for oxygen, as it is documented that [employer], [employer], and [email or web address] is in network with MMO insurance. Pt states she does not have insurance. She was made aware precert confirmed pt has [employer] PPO, but pt insistent she does not have any insurance, as she only works [employer]. Pt made aware cost for O2 for a month is approx $158 through [facility]. Pt states this is affordable and agreeable to [facility] for oxygen. She tates she will pay for it out of pocket, that she does not wish to have attempts made to bill through insurance. She asks for someone to call her for payment. Script for oxygen obtained from Dr Pozo and faxed to [facility]. Call placed to [facility] and they were made aware of need for portable oxygen delivery today to hospital, room 205. He was made aware pt is COVID-19 positive. Call placed to [facility] and message left re: pt stating she does not have insurance. Gage DUFF RN, CM
[2019-06-22 14:45] VITALS: BP 149/97; PULSE 80; RESP 16; TEMP 36.7; O2SAT 93
--- NOTE | 2019-06-24 11:25 | CASEMGMT ---
LULU DAO Discharge Follow-up Phone Call: JOVANA: Ildefonso Strata: 3 Call Date: 06/24/2019 Discharge Date: 06/22/2019 Time of Call: 1125 Duration: 3 min Admitting Diagnosis: Pneumonia, Covid + [facility] DAO completed follow-up phone call after recent hospitalization. Patient states she is doing much better. Patient had no questions regarding discharge instructions. Patient was able to fill prescriptions without any issues. Patient continues to self isolate and checking temperature. Patient aware to schedule follow-up appts. Patient had no further questions or concerns at this time.
== END 2019-06-22 15:10 | disposition home or self-care (01) | DRG 177 ==
LOC: ED 16:40 → MS2 19:25 → ICU 06-19 09:29 → MS2 06-19 19:20
PROVIDERS: Internal Medicine Infectious Disease; Emergency Provider Emergency Medicine; PCP Family Medicine; Visit Provider Internal Medicine
DX: U07.1 COVID-19 (principal); J12.89 Other viral pneumonia; J96.01 Acute respiratory failure with hypoxia; D72.819 Decreased white blood cell count, unspecified; D69.6 Thrombocytopenia, unspecified; R74.0 Nonspecific elevation of levels of transaminase and lactic acid dehydrogenase [LDH]
CPT/HCPCS: 36415; 71045; 71275; 80048; 80053; 82550; 82728; 82977; 83615; 84145; 84484; 84703; 85025; 85379; 86140; 87449; 87635; 87804; 93005; 94002; 94660; 94667; 96374; 96375; 99285; G2023; J7050; Q9967; A4216; J0696; J2405; U0004